=== PATIENT | female | born 1970 ===

== ENCOUNTER 2017-06-17 17:53 | Inpatient (IN) | payer MEDICARE, OTHER ==
[2017-06-17 17:53] VITALS: BMI 28.0
[2017-06-17] MEDS ORDERED: Sodium Chloride 0.9% 1,000 ML IV ONE (18:24)
[2017-06-17] MEDS ORDERED: Sodium Chloride 0.9% 1,000 ML ONE (18:52)
[2017-06-17 18:54] LABS: VENOUS BLOOD GAS BASE EXCESS 1.3 mmol/L (0.0-2.0); VENOUS BLOOD GAS PCO2 36 mmHg (40-60); VENOUS BLOOD GAS PO2 60 mm/Hg (30-55); VENOUS BLOOD PH 7.45 (7.32-7.43)
[2017-06-17 18:54] LABS: BASO % 0.3 % (0.0-2.0); EOS % 0.9 % (0.0-4.0); HEMOGLOBIN 12.2 g/dL (11.0-16.0); LYMPH # 0.5 K/uL (1.0-4.3); LYMPH % 9.3 % (20.0-40.0); MEAN CELL VOLUME 75.7 fL (81.0-99.0); MEAN PLATELET VOLUME 9.7 fL (7.2-11.7); MONO # 0.5 K/uL (0.0-0.8); MONO % 8.9 % (0.0-10.0); NEUT # 4.4 K/uL (1.8-7.0); NEUT % 80.6 % (50.0-75.0); PLATELET COUNT 166 K/uL (130-400); RBC 4.87 Mil/uL (3.80-5.20); RED CELL DISTRIBUTION WIDTH 15.3 % (11.5-14.5); WHITE BLOOD COUNT 5.5 K/uL (4.8-10.8)
[2017-06-17 19:05] LABS: ALB/GLOB RATIO 1.3 (1.0-2.1); ALBUMIN 4.4 g/dL (3.5-5.0); ALT/SGPT 16 U/L (9-52); AST/SGOT 21 U/L (14-36); BLOOD UREA NITROGEN 8 mg/dL (7-17); CALCIUM 9.4 mg/dl (8.6-10.4); GFR AFRICAN-AMERICAN > 60; GFR NON-AFRICAN AMERICAN > 60
[2017-06-17 19:10] LABS: SQUAMOUS EPITHIAL 1 /hpf (0-5); URINE BILIRUBIN NEGATIVE (NEGATIVE); URINE BLOOD 2+ (NEGATIVE); URINE CLARITY Clear (Clear); URINE COLOR Straw (YELLOW); URINE GLUCOSE (UA) NORMAL (Normal); URINE LEUKOCYTE ESTERASE NEG Leu/uL (Negative); URINE NITRATE NEGATIVE (NEGATIVE); URINE PROTEIN NEGATIVE (NEGATIVE); URINE UROBILINOGEN NORMAL mg/dL (0.2-1.0)
--- NOTE | 2017-06-17 19:20 | C.PDOC ---
History Of Present Illness <Kerri Bhatia - Last Filed: 06/17/17 23:03> <Matt Costello - Last Filed: 06/17/17 23:34> 47 yo female w/PMHx of breast CA (2015) in remission, thyroid ds, come in for evaluation of fever, bodyaches, dry cough gradually developed since yesterday. Pt reports, developed mild cold sx 1 week ago with nasal congestion, dry cough. Pt sts, was seen by PMD 1 week ago, received Rx; Zithromax, completed 4 days ago. Pt reports, since yesterday felt worse with fever, bodyaches. Otherwise , pt denies lethargy, severe headache, dizziness, neck pain, drooling, dysphagia, dyspnea, CP, SOB, palpitation, abd. pain, V/D, UTI sx, denies recent travel or known sick contact. Ambulate to ED for evaluation, not in nay apparent distress. (Kerri Bhatia) History Per: Patient, Family Onset/Duration Of Symptoms: Gradual <Kerri Bhatia - Last Filed: 06/17/17 23:03> <Matt Costello - Last Filed: 06/17/17 23:34> Time Seen by Provider: 06/17/17 18:10 Chief Complaint (Nursing): Flu-like Symptoms Past Medical History Reviewed: Historical Data, Nursing Documentation, Vital Signs - Medical History PMH: Anxiety, Depression, Gastritis, Hypothyroidism, Malignancy (breast CA s/p mastectomy, taking Tamoxifen), Seizures (1982), TIA (1988) Denies: Chronic Kidney Disease Other Surgeries: B/L mastectomy Family History: States: Unknown Family Hx - Social History Hx Tobacco Use: No Hx Alcohol Use: No Hx Substance Use: No - Immunization History Hx Tetanus Toxoid Vaccination: No Hx Influenza Vaccination: No Hx Pneumococcal Vaccination: No <Kerri Bhatia - Last Filed: 06/17/17 23:03> Vital Signs: Last Vital Signs Temp 101.3 F H 06/17/17 22:35 Pulse 117 H 06/17/17 22:24 Resp 18 06/17/17 22:24 BP 112/91 H 06/17/17 22:24 Pulse Ox 98 06/17/17 23:09 - [facility] Procedures BILAT EXTEND SIMP MASTEC (12/14/13) BILATERAL BREAST IMPLANT (07/19/14) BONE BIOPSY NEC (01/30/14) BREAST IMPLANT REMOVAL (07/19/14) COLONOSCOPY (03/02/13) ESOPHAGOGASTRODUODENOSCOPY [EGD] W/CLOSED BIOPSY (03/02/13) EXCISE AXILLARY NODE (12/14/13) INCIS W REM OF FORIEGN BODY OR DEV FROM SKIN & SUBCUT TISSUE (12/03/14) INJECT/INFUSE NEC (08/31/13) INSERTION OF BREAST TISSUE CEMENT FITTINGS MAKER (12/14/13) INSERTION OF TOTALLY IMPLANTABLE VASC ACCESS DEVIC (01/11/14) MAMMOPLASTY NEC (12/14/13) OTHER C.A.T. SCAN (01/30/14) PERCUTAN NEEDLE BIOPSY OF BREAST (09/26/13) THORAX SFT TISS XRAY NEC (12/03/14) Review Of Systems Except As Marked, All Systems Reviewed And Found Negative. Constitutional: Positive for: Fever, Chills, Malaise ENT: Positive for: Nose Discharge, Nose Congestion, Throat Pain. Negative for: Ear Pain, Ear Discharge Cardiovascular: Negative for: Chest Pain, Edema, Light Headedness Respiratory: Positive for: Cough. Negative for: Shortness of Breath, Wheezing Gastrointestinal: Positive for: Nausea. Negative for: Vomiting, Abdominal Pain , Diarrhea Musculoskeletal: Negative for: Neck Pain, Back Pain Skin: Negative for: Rash Neurological: Negative for: Altered Mental Status, Headache <Kerri Bhatia - Last Filed: 06/17/17 23:03> Physical Exam - Physical Exam Appears: Well, Non-toxic, No Acute Distress Skin: Normal Color, Warm, Dry, No Rash Head: Normacephalic Eye(s): bilateral: PERRL Ear(s): Bilateral: Normal Nose: No Flaring, Discharge (B/L nasal congestion with scant clear rhinorrhea) Oral Mucosa: Moist, No Drooling Throat: No Erythema, No Drooling Neck: Trachea Midline, Supple Cardiovascular: Rhythm Regular (tachy), No Murmur, No JVD Respiratory: No Decreased Breath Sounds, No Accessory Muscle Use, No Stridor, No Wheezing Gastrointestinal/Abdominal: Soft, No Tenderness, No Distention, No Guarding Back: No CVA Tenderness Extremity: Normal ROM, No Pedal Edema, No Deformity, No Swelling Neurological/Psych: Oriented x3, Normal Speech <Kerri Bhatia - Last Filed: 06/17/17 23:03> ED Course And Treatment - Laboratory Results Result Diagrams: 06/17/17 18:48 06/17/17 18:48 O2 Sat by Pulse Oximetry: 98 Pulse Ox Interpretation: Normal - Radiology CXR: Interpreted by Me, Viewed By Me CXR Interpretation: Yes: No Acute Disease Progress Note: After my evaluation, was notified abput case. Septic work up performed. Lactic was slightly elevated. Hydration with IV fluids order immediately. Influenza A (+), tamiflu initiated. <Kerri Bhatia - Last Filed: 06/17/17 23:03> - Laboratory Results Result Diagrams: 06/17/17 18:48 02 18:48 - Physician Consult Information Physician Contacted: Kofi Song (ICU) Outcome Of Conversation: He evaluated pt in the ED and did not accept pt to ICU. Pt will be downgraded to Tele. <Matt Costello E - Last Filed: 06/17/17 23:34> Critical Care Time - Critical Care Note Total Time (in mins): 30 Documented critical care: time excludes all time spent performing seperately billable procedures. <Kerri Bhatia - Last Filed: 06/17/17 23:03> Disposition - Disposition Disposition Time: 23:03 <Kerri Bhatia - Last Filed: 06/17/17 23:03> <Matt Costello E - Last Filed: 06/17/17 23:34> - Disposition Disposition: HOSPITALIZED Condition: FAIR - Clinical Impression Clinical Impression: Influenza - PA / MANAGER ENGINE / Resident Statement MD/DO has reviewed & agrees with the documentation as recorded. <Matt Costello E - Last Filed: 06/17/17 23:34>
[2017-06-17 19:29] LABS: ANISOCYTOSIS SLIGHT; HYPOCHROMIC SLIGHT; LYMPHOCYTE 4 % (20-40); MONOCYTE 4 % (0-10); NEUTROPHIL 92 % (50-75); PLATELET ESTIMATE NORMAL (NORMAL); TOTAL CELLS COUNTED 100
[2017-06-17 19:30] LABS: POLYCHROMIC SLIGHT
[2017-06-17] MEDS ORDERED: Lactated Ringer's 1,000 ML ONE (21:45)
[2017-06-17 22:08] LABS: VENOUS BLOOD GAS BASE EXCESS -1.1 mmol/L (0.0-2.0); VENOUS BLOOD GAS PCO2 38 mmHg (40-60); VENOUS BLOOD GAS PO2 34 mm/Hg (30-55)
[2017-06-17] MEDS ORDERED: Lactated Ringer's 1,800 ML IV ONE (23:04)
[2017-06-17] MEDS ORDERED: cefTRIAXone IV 1 gm in Dextros 50 ML IVPB ONE (23:36)
[2017-06-17] MEDS ORDERED: guaiFENesin DM 200 mg-20 mg/10 ml UD PO PRN (23:37)
--- NOTE | 2017-06-17 23:43 | CP.PCM.CON ---
History of Present Illness - History of Present Illness History of Present Illness: 47 y/o female with pmx of breast cancer(resolved? as per patient) presents to [facility] with c/o cough/fevers and joint pain. Patient has 2 children also with coughing. Patient c/o sore throat, denies any chest pain, denies any abdominal pain. 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 cancer spread to right hip - GASTROINTESTINAL Hx Gastritis: Yes - GENITOURINARY/GYNECOLOGICAL Hx Reproductive Disorders: Yes Other/Comment: h/o Fibroid Uterus - PSYCHIATRIC Hx Anxiety: Yes Hx Depression: Yes Hx Substance Use: No - SURGICAL HISTORY Hx Surgeries: Yes Hx Breast Biopsy: Yes Hx Section: Yes (x3) Hx Hysterectomy: Yes (2011) Hx Mastectomy: Yes (Bilateral 11/2012 W/ BILATERAL BREAST IMPLANTS) Hx Vascular Access Device: Yes (removal richa cath) Other/Comment: abdominoplasty/LUNG BIOPSY - ANESTHESIA Hx Anesthesia: Yes Hx Anesthesia Reactions: Yes (n/v) Hx Malignant Hyperthermia: No Meds Allergies/Adverse Reactions: Allergies Allergy/AdvReac Type Severity Reaction Status Date / Time levofloxacin [From Levaquin] Allergy Severe ITCHING Verified 02/12/16 15:42 - Medications Medications: Current Medications Guaifenesin/Dextromethorphan (Robitussin Dm) 10 ml PO Q4H PRN PRN Reason: Cough and congestion Ceftriaxone Sodium 1 gm/ (Sodium Chloride) 100 mls @ 100 mls/hr IVPB STAT STA Stop: 06/18/17 00:20 Sodium Chloride (Sodium Chloride 0.9%) 1,000 mls @ 100 mls/hr IV .Q10H ALIVIA Results - Vital Signs Recent Vital Signs: Last Vital Signs Temp 101.3 F H 06/17/17 22:35 Pulse 117 H 06/17/17 22:24 Resp 18 06/17/17 22:24 BP 112/91 H 06/17/17 22:24 Pulse Ox 98 06/17/17 23:09 - Labs Result Diagrams: 06/17/17 18:48 06/17/17 18:48 Labs: Laboratory Results - last 24 hr 06/17/17 06/17/17 06/17/17 18:27 18:48 18:48 WBC 5.5 RBC 4.87 Hgb 12.2 Hct 36.9 MCV 75.7 L D MCH 25.0 L MCHC 33.0 RDW 15.3 H Plt Count 166 MPV 9.7 Neut % (Auto) 80.6 H Lymph % (Auto) 9.3 L [place] % (Auto) 8.9 Eos % (Auto) 0.9 Baso % (Auto) 0.3 Neut # (Auto) 4.4 Lymph # (Auto) 0.5 L [place] # (Auto) 0.5 Eos # (Auto) 0.0 Baso # (Auto) 0.0 Neutrophils % (Manual) 92 H Lymphocytes % (Manual) 4 L Monocytes % (Manual) 4 Platelet Estimate Normal Polychromasia Slight Hypochromasia (manual) Slight Anisocytosis (manual) Slight pO2 VBG pH VBG pCO2 VBG HCO3 VBG Total CO2 VBG O2 Sat (Calc) VBG Base Excess VBG Potassium Glucose Lactate FiO2 Sodium 138 Potassium 4.0 Chloride 99 Carbon Dioxide 24 Anion Gap 19 BUN 8 Creatinine 0.5 L Est GFR ( Amer) > 60 Est GFR (Non-Af Amer) > 60 Random Glucose 112 H Calcium 9.4 Total Bilirubin 0.3 AST 21 ALT 16 Alkaline Phosphatase 97 Total Protein 7.8 Albumin 4.4 Globulin 3.4 Albumin/Globulin Ratio 1.3 Venous Blood Potassium Urine Color Urine Clarity Urine pH Ur Specific [place] Urine Protein Urine Glucose (UA) Urine Ketones Urine Blood Urine Nitrate Urine Bilirubin Urine Urobilinogen Ur Leukocyte Esterase Urine WBC (Auto) Urine RBC (Auto) Ur Squamous Epith Cells Influenza Typ A,B (EIA) Pos for influenza a H 06/17/17 06/17/17 06/17/17 18:50 19:00 22:05 WBC RBC Hgb Hct MCV MCH MCHC RDW Plt Count MPV Neut % (Auto) Lymph % (Auto) [place] % (Auto) Eos % (Auto) Baso % (Auto) Neut # (Auto) Lymph # (Auto) [place] # (Auto) Eos # (Auto) Baso # (Auto) Neutrophils % (Manual) Lymphocytes % (Manual) Monocytes % (Manual) Platelet Estimate Polychromasia Hypochromasia (manual) Anisocytosis (manual) pO2 60 H 34 VBG pH 7.45 H 7.40 VBG pCO2 36 L 38 L VBG HCO3 25.8 23.2 VBG Total CO2 26.1 24.7 VBG O2 Sat (Calc) 94.5 H 65.4 H VBG Base Excess 1.3 -1.1 L VBG Potassium 3.9 3.5 L Glucose 112 H 123 H Lactate 2.6 H 2.7 H FiO2 21.0 Sodium 136.0 140.0 Potassium Chloride 105.0 113.0 H Carbon Dioxide Anion Gap BUN Creatinine Est GFR ( Amer) Est GFR (Non-Af Amer) Random Glucose Calcium Total Bilirubin AST ALT Alkaline Phosphatase Total Protein Albumin Globulin Albumin/Globulin Ratio Venous Blood Potassium 3.9 3.5 L Urine Color Straw Urine Clarity Clear Urine pH 8.0 Ur Specific [place] 1.010 Urine Protein Negative Urine Glucose (UA) Normal Urine Ketones Negative Urine Blood 2+ H Urine Nitrate Negative Urine Bilirubin Negative Urine Urobilinogen Normal Ur Leukocyte Esterase Neg Urine WBC (Auto) < 1 Urine RBC (Auto) 2 Ur Squamous Epith Cells 1 Influenza Typ A,B (EIA) Assessment & Plan - Assessment and Plan (Free Text) Assessment: URTI: flu (+), start tamiflu + ceftriaxone -IV hydration with IV NS -Serial lactic -isolation -dvt ppx lovenox -Please call ICU if patient's clinical status worsens. d/w Dr. Oconnor (ER)
[2017-06-18] MEDS ORDERED: guaiFENesin DM 100 mg-10 mg/5 ml UD ONE (00:22)
[2017-06-18] MEDS: Sodium Chloride 0.9% 1,000 ML IV SCH ×3 (01:05→20:11)
[2017-06-18] MEDS ORDERED: Sodium Chloride 0.9% 1,000 ML ONE (04:05)
[2017-06-18] MEDS ORDERED: Azithromycin 500mg/250ML NS 500 MG/250 ML BAG IVPB STA (07:18)
[2017-06-18] MEDS ORDERED: Azithromycin 500 MG in Sodium Chloride 0.9% 250 ML IVPB ONE (08:00)
--- NOTE | 2017-06-18 08:26 | RAD ---
HISTORY: Cough COMPARISON: Chest x-ray performed 03/08/17 TECHNIQUE: Chest PA and lateral FINDINGS: Examination limited by habitus and hypoinflation. LUNGS: No focal consolidation. 3 mm left upper lobe and 2 mm left mid lung zone probable calcified granulomas. Please note that chest x-ray has limited sensitivity for the detection of pulmonary masses. PLEURA: No significant pleural effusion identified. No definite pneumothorax . CARDIOVASCULAR: Heart size appears within normal limits. OSSEOUS STRUCTURES: Mild degenerative changes of the spine. VISUALIZED UPPER ABDOMEN: Unremarkable. OTHER FINDINGS: Surgical clips project over the chest anterior thorax. IMPRESSION: No focal consolidation identified.
[2017-06-18] MEDS: Albuterol-Ipratrop 3 mg / 0.5 (3 ml) UD INH SCH ×3 (08:30→20:15)
[2017-06-18] MEDS ORDERED: Albuterol-Ipratrop 3 mg / 0.5 (3 ml) UD ONE ×3 (08:31→20:04)
[2017-06-18] MEDS ORDERED: Levothyroxine 25 MCG TAB PO SCH (10:00)
[2017-06-18] MEDS: Enoxaparin 40 mg Syringe SC SCH (10:06)
--- NOTE | 2017-06-18 14:19 | CP.PCM.CON ---
History of Present Illness - History of Present Illness History of Present Illness: INFECTIOUS DISEASE CONSULT; HPI; 47-year-old female with history of breast CA status post bilateral mastectomy taking tamoxifen, hypothyroidism, depression, gastritis was admitted via the emergency room with fever, body aches and a dry cough which developed one day prior to admission. Patient admits to URI symptoms with nasal congestion and dry cough and was treated with by mouth Zithromax and completed the dose but states she felt worse. She denies any recent travel or sick contacts. She has children who are also sick at home. Patient denies any nausea vomiting, headache, dizziness, dysphagia, shortness of breath or palpitations. An influenza rapid antigen test was positive for influenza A and patient was started on by mouth Tamiflu and broad-spectrum antibiotics including Rocephin and Zithromax. Patient serum lactate was also found to be elevated to 2.6 and on repeat 2.7. Infectious disease consultation requested by PMD for sepsis and influenza. PMH: Anxiety, Depression, Gastritis, Hypothyroidism, Malignancy (breast CA s/p mastectomy, taking Tamoxifen), Seizures (1982), TIA (1988) Denies: Chronic Kidney Disease Other Surgeries: B/L mastectomy Family History: States: Unknown Family Hx - Social History Hx Tobacco Use: No Hx Alcohol Use: No Hx Substance Use: No - Immunization History Hx Tetanus Toxoid Vaccination: No Hx Influenza Vaccination: No Hx Pneumococcal Vaccination: No ALLERGY; LEVAQUIN. Review of Systems - Constitutional Constitutional: Chills, Fever - EENT Eyes: absent: Change in Vision Ears: absent: Ear Pain Nose/Mouth/Throat: absent: Hoarsness, Mouth Lesions, Sore Throat - Cardiovascular Cardiovascular: absent: Chest Pain - Respiratory Respiratory: Cough (dry), Chest Congestion - Gastrointestinal Gastrointestinal: absent: Abdominal Pain, Constipation, Diarrhea, Nausea, Vomiting - Genitourinary Genitourinary: absent: Dysuria, Urinary Hesitance - Musculoskeletal Musculoskeletal: Arthralgias, Muscle Cramps, Myalgias - Neurological Neurological: absent: Dizziness, Headaches - Psychiatric Psychiatric: Anxiety, Depression - Hematologic/Lymphatic Hematologic: As Per HPI. absent: Lymphadenopathy Past Patient History - Past Medical History & Family History Past Medical History?: Yes - Past Social History Smoking Status: Never Smoked - CARDIAC Hx Cardiac Disorders: No - PULMONARY Hx Respiratory Disorders: Yes Other/Comment: GRANULOMA ON CXR DONE ON 12/11/13 ON LEFT UPPER LUNG FIELD - NEUROLOGICAL Hx Seizures: Yes (1982) Hx Transient Ischemic Attacks (TIA): Yes (1988) - HEENT Hx HEENT Problems: Yes Other/Comment: THYROID NODULE - RENAL Hx Chronic Kidney Disease: No - ENDOCRINE/METABOLIC Hx Hypothyroidism: Yes - HEMATOLOGICAL/ONCOLOGICAL Hx Blood Disorders: Yes Hx Cancer: Yes (breast ca right) Hx Chemotherapy: Yes (FINISHED NOW ) Hx Metastesis: Yes (right hip) - INTEGUMENTARY Hx Dermatological Problems: No - MUSCULOSKELETAL/RHEUMATOLOGICAL Hx Musculoskeletal Disorders: No Hx Falls: No Other/Comment: right hip pain when it cold . cancer spread to right hip - GASTROINTESTINAL Hx Gastritis: Yes - GENITOURINARY/GYNECOLOGICAL Hx Reproductive Disorders: Yes Other/Comment: h/o Fibroid Uterus - PSYCHIATRIC Hx Anxiety: Yes Hx Depression: Yes Hx Substance Use: No - SURGICAL HISTORY Hx Surgeries: Yes Hx Breast Biopsy: Yes Hx Section: Yes (x3) Hx Hysterectomy: Yes (2011) Hx Mastectomy: Yes (Bilateral 11/2012 W/ BILATERAL BREAST IMPLANTS) Hx Vascular Access Device: Yes (removal richa cath) Other/Comment: abdominoplasty/LUNG BIOPSY - ANESTHESIA Hx Anesthesia: Yes Hx Anesthesia Reactions: Yes (n/v) Hx Malignant Hyperthermia: No Meds Allergies/Adverse Reactions: Allergies Allergy/AdvReac Type Severity Reaction Status Date / Time levofloxacin [From Levaquin] Allergy Severe ITCHING Verified 02/12/16 15:42 - Medications Medications: Current Medications Albuterol/Ipratropium (Duoneb 3 Mg/0.5 Mg (3 Ml) Ud) 3 ml INH RQ6 [facility] Last Admin: 06/18/17 08:30 Dose: 3 ml Enoxaparin Sodium (Lovenox) 40 mg SC DAILY [facility] Last Admin: 06/18/17 10:06 Dose: 40 mg Guaifenesin/Dextromethorphan (Robitussin Dm) 10 ml PO Q4H PRN PRN Reason: Cough and congestion Last Admin: 06/18/17 00:15 Dose: 10 ml Sodium Chloride (Sodium Chloride 0.9%) 1,000 mls @ 100 mls/hr IV .Q10H [facility] Last Admin: 06/18/17 10:06 Dose: 100 mls/hr Ceftriaxone Sodium 1 gm/ (Sodium Chloride) 100 mls @ 200 mls/hr IVPB Q24H [facility] Last Admin: 06/18/17 10:36 Dose: 200 mls/hr Levothyroxine Sodium (Synthroid) 50 mcg PO DAILY [facility] Last Admin: 06/18/17 09:14 Dose: 50 mcg Oseltamivir Phosphate (Tamiflu Cap) 75 mg PO BID [facility] Stop: 06/23/17 07:19 Last Admin: 06/18/17 10:06 Dose: 75 mg Physical Exam - Constitutional Appears: No Acute Distress - Head Exam Head Exam: NORMAL INSPECTION - Eye Exam Eye Exam: EOMI, PERRL - ENT Exam ENT Exam: Mucous Membranes Dry, Normal Oropharynx - Neck Exam Neck exam: Positive for: Normal Inspection. Negative for: Meningismus - Respiratory Exam Respiratory Exam: Clear to Auscultation Bilateral, NORMAL BREATHING PATTERN - Cardiovascular Exam Cardiovascular Exam: REGULAR RHYTHM, +S1, +S2 - GI/Abdominal Exam GI & Abdominal Exam: Normal Bowel Sounds, Soft. absent: Tenderness - Extremities Exam Extremities exam: Positive for: pedal pulses present. Negative for: calf tenderness, pedal edema - Neurological Exam Neurological exam: Alert, CN II-XII Intact, Oriented x3 - Psychiatric Exam Psychiatric exam: Normal Mood - Skin Skin Exam: Normal Color, Warm Results - Vital Signs Recent Vital Signs: Last Vital Signs Temp 99.4 F 06/18/17 12:07 Pulse 101 H 06/18/17 12:07 Resp 22 06/18/17 12:07 BP 98/65 L 06/18/17 12:07 Pulse Ox 97 06/18/17 12:07 - Labs Result Diagrams: 06/17/17 18:48 06/17/17 18:48 Labs: Laboratory Results - last 24 hr 06/17/17 06/17/17 06/17/17 18:27 18:48 18:48 WBC 5.5 RBC 4.87 Hgb 12.2 Hct 36.9 MCV 75.7 L D MCH 25.0 L MCHC 33.0 RDW 15.3 H Plt Count 166 MPV 9.7 Neut % (Auto) 80.6 H Lymph % (Auto) 9.3 L [place] % (Auto) 8.9 Eos % (Auto) 0.9 Baso % (Auto) 0.3 Neut # (Auto) 4.4 Lymph # (Auto) 0.5 L [place] # (Auto) 0.5 Eos # (Auto) 0.0 Baso # (Auto) 0.0 Neutrophils % (Manual) 92 H Lymphocytes % (Manual) 4 L Monocytes % (Manual) 4 Platelet Estimate Normal Polychromasia Slight Hypochromasia (manual) Slight Anisocytosis (manual) Slight pO2 VBG pH VBG pCO2 VBG HCO3 VBG Total CO2 VBG O2 Sat (Calc) VBG Base Excess VBG Potassium Glucose Lactate FiO2 Sodium 138 Potassium 4.0 Chloride 99 Carbon Dioxide 24 Anion Gap 19 BUN 8 Creatinine 0.5 L Est GFR ( Amer) > 60 Est GFR (Non-Af Amer) > 60 Random Glucose 112 H Lactic Acid Calcium 9.4 Total Bilirubin 0.3 AST 21 ALT 16 Alkaline Phosphatase 97 Total Protein 7.8 Albumin 4.4 Globulin 3.4 Albumin/Globulin Ratio 1.3 Venous Blood Potassium Urine Color Urine Clarity Urine pH Ur Specific [place] Urine Protein Urine Glucose (UA) Urine Ketones Urine Blood Urine Nitrate Urine Bilirubin Urine Urobilinogen Ur Leukocyte Esterase Urine WBC (Auto) Urine RBC (Auto) Ur Squamous Epith Cells Influenza Typ A,B (EIA) Pos for influenza a H 06/17/17 06/17/17 06/17/17 18:50 19:00 22:05 WBC RBC Hgb Hct MCV MCH MCHC RDW Plt Count MPV Neut % (Auto) Lymph % (Auto) [place] % (Auto) Eos % (Auto) Baso % (Auto) Neut # (Auto) Lymph # (Auto) [place] # (Auto) Eos # (Auto) Baso # (Auto) Neutrophils % (Manual) Lymphocytes % (Manual) Monocytes % (Manual) Platelet Estimate Polychromasia Hypochromasia (manual) Anisocytosis (manual) pO2 60 H 34 VBG pH 7.45 H 7.40 VBG pCO2 36 L 38 L VBG HCO3 25.8 23.2 VBG Total CO2 26.1 24.7 VBG O2 Sat (Calc) 94.5 H 65.4 H VBG Base Excess 1.3 -1.1 L VBG Potassium 3.9 3.5 L Glucose 112 H 123 H Lactate 2.6 H 2.7 H FiO2 21.0 Sodium 136.0 140.0 Potassium Chloride 105.0 113.0 H Carbon Dioxide Anion Gap BUN Creatinine Est GFR ( Amer) Est GFR (Non-Af Amer) Random Glucose Lactic Acid Calcium Total Bilirubin AST ALT Alkaline Phosphatase Total Protein Albumin Globulin Albumin/Globulin Ratio Venous Blood Potassium 3.9 3.5 L Urine Color Straw Urine Clarity Clear Urine pH 8.0 Ur Specific [place] 1.010 Urine Protein Negative Urine Glucose (UA) Normal Urine Ketones Negative Urine Blood 2+ H Urine Nitrate Negative Urine Bilirubin Negative Urine Urobilinogen Normal Ur Leukocyte Esterase Neg Urine WBC (Auto) < 1 Urine RBC (Auto) 2 Ur Squamous Epith Cells 1 Influenza Typ A,B (EIA) 06/18/17 04:18 WBC RBC Hgb Hct MCV MCH MCHC RDW Plt Count MPV Neut % (Auto) Lymph % (Auto) [place] % (Auto) Eos % (Auto) Baso % (Auto) Neut # (Auto) Lymph # (Auto) [place] # (Auto) Eos # (Auto) Baso # (Auto) Neutrophils % (Manual) Lymphocytes % (Manual) Monocytes % (Manual) Platelet Estimate Polychromasia Hypochromasia (manual) Anisocytosis (manual) pO2 VBG pH VBG pCO2 VBG HCO3 VBG Total CO2 VBG O2 Sat (Calc) VBG Base Excess VBG Potassium Glucose Lactate FiO2 Sodium Potassium Chloride Carbon Dioxide Anion Gap BUN Creatinine Est GFR ( Amer) Est GFR (Non-Af Amer) Random Glucose Lactic Acid 1.2 Calcium Total Bilirubin AST ALT Alkaline Phosphatase Total Protein Albumin Globulin Albumin/Globulin Ratio Venous Blood Potassium Urine Color Urine Clarity Urine pH Ur Specific [place] Urine Protein Urine Glucose (UA) Urine Ketones Urine Blood Urine Nitrate Urine Bilirubin Urine Urobilinogen Ur Leukocyte Esterase Urine WBC (Auto) Urine RBC (Auto) Ur Squamous Epith Cells Influenza Typ A,B (EIA) - Imaging and Cardiology Chest x-ray Status: Report reviewed by me (no focal consolidation. 3 mm old calcified granuloma left upper lung.) Assessment & Plan (1) Cough Assessment and Plan: MONTOYA CULTURE. CONTINUE PO tAMIFLU 75 BY MOUTH TWICE A DAY FOR 5 DAYS 06/17/17 CONTINUE ROCEPHIN 1 G EVERY 24 HOURLY 06/17/17 DC IV zITHROMAX .06/18/17 ANTITUSSIVE PER PULMONARY. AIRBORNE ISOLATION FOR INFLUENZA a Status: Acute (2) Influenza Assessment and Plan: PER ABOVE. cONTINUE ANTIVIRAL THERAPY ORDERED Status: Acute (3) Anxiety Status: Acute
--- NOTE | 2017-06-18 14:41 | CP.PCM.CON ---
History of Present Illness - History of Present Illness History of Present Illness: Reason for consultation: cough 47-year-old female with history of breast cancer diagnosed in 2016, hypothyroidsm presented to emergency room complaining off dry cough, fever, generalized aches and pains for the past one week. Patient was treated with Zithromax but symptoms progressively got worse. In the emergency room patient found to have elevated lactate level. Patient was started on antibiotics and IV fluids. Patient alert oriented x3 and in no respiratory distress the Review of Systems - Review of Systems All systems: reviewed and no additional remarkable complaints except ( complaining of cough) Past Patient History - Past Medical History & Family History Past Medical History?: Yes - Past Social History Smoking Status: Never Smoked - CARDIAC Hx Cardiac Disorders: No - PULMONARY Hx Respiratory Disorders: Yes Other/Comment: GRANULOMA ON CXR DONE ON 12/11/13 ON LEFT UPPER LUNG FIELD - NEUROLOGICAL Hx Seizures: Yes (1982) Hx Transient Ischemic Attacks (TIA): Yes (1988) - HEENT Hx HEENT Problems: Yes Other/Comment: THYROID NODULE - RENAL Hx Chronic Kidney Disease: No - ENDOCRINE/METABOLIC Hx Hypothyroidism: Yes - HEMATOLOGICAL/ONCOLOGICAL Hx Blood Disorders: Yes Hx Cancer: Yes (breast ca right) Hx Chemotherapy: Yes (FINISHED NOW ) Hx Metastesis: Yes (right hip) - INTEGUMENTARY Hx Dermatological Problems: No - MUSCULOSKELETAL/RHEUMATOLOGICAL Hx Musculoskeletal Disorders: No Hx Falls: No Other/Comment: right hip pain when it cold . cancer spread to right hip - GASTROINTESTINAL Hx Gastritis: Yes - GENITOURINARY/GYNECOLOGICAL Hx Reproductive Disorders: Yes Other/Comment: h/o Fibroid Uterus - PSYCHIATRIC Hx Anxiety: Yes Hx Depression: Yes Hx Substance Use: No - SURGICAL HISTORY Hx Surgeries: Yes Hx Breast Biopsy: Yes Hx Section: Yes (x3) Hx Hysterectomy: Yes (2011) Hx Mastectomy: Yes (Bilateral 11/2012 W/ BILATERAL BREAST IMPLANTS) Hx Vascular Access Device: Yes (removal richa cath) Other/Comment: abdominoplasty/LUNG BIOPSY - ANESTHESIA Hx Anesthesia: Yes Hx Anesthesia Reactions: Yes (n/v) Hx Malignant Hyperthermia: No Meds Allergies/Adverse Reactions: Allergies Allergy/AdvReac Type Severity Reaction Status Date / Time levofloxacin [From Levaquin] Allergy Severe ITCHING Verified 02/12/16 15:42 - Medications Medications: Current Medications Albuterol/Ipratropium (Duoneb 3 Mg/0.5 Mg (3 Ml) Ud) 3 ml INH RQ6 [facility] Last Admin: 06/18/17 08:30 Dose: 3 ml Enoxaparin Sodium (Lovenox) 40 mg SC DAILY [facility] Last Admin: 06/18/17 10:06 Dose: 40 mg Guaifenesin/Dextromethorphan (Robitussin Dm) 10 ml PO Q4H PRN PRN Reason: Cough and congestion Last Admin: 06/18/17 00:15 Dose: 10 ml Sodium Chloride (Sodium Chloride 0.9%) 1,000 mls @ 100 mls/hr IV .Q10H [facility] Last Admin: 06/18/17 10:06 Dose: 100 mls/hr Ceftriaxone Sodium 1 gm/ (Sodium Chloride) 100 mls @ 200 mls/hr IVPB Q24H [facility] Last Admin: 06/18/17 10:36 Dose: 200 mls/hr Levothyroxine Sodium (Synthroid) 50 mcg PO DAILY [facility] Last Admin: 06/18/17 09:14 Dose: 50 mcg Oseltamivir Phosphate (Tamiflu Cap) 75 mg PO BID [facility] Stop: 06/23/17 07:19 Last Admin: 06/18/17 10:06 Dose: 75 mg Physical Exam - Head Exam Head Exam: ATRAUMATIC, NORMOCEPHALIC - ENT Exam ENT Exam: Mucous Membranes Dry - Neck Exam Neck exam: Positive for: Normal Inspection - Respiratory Exam Respiratory Exam: Clear to Auscultation Bilateral - Cardiovascular Exam Cardiovascular Exam: REGULAR RHYTHM - GI/Abdominal Exam GI & Abdominal Exam: Normal Bowel Sounds, Soft - Extremities Exam Extremities exam: Positive for: normal inspection - Neurological Exam Neurological exam: Alert, Oriented x3 Results - Vital Signs Recent Vital Signs: Last Vital Signs Temp 99.4 F 06/18/17 12:07 Pulse 101 H 06/18/17 12:07 Resp 22 06/18/17 12:07 BP 98/65 L 06/18/17 12:07 Pulse Ox 97 06/18/17 12:07 - Labs Result Diagrams: 06/17/17 18:48 06/17/17 18:48 Labs: Laboratory Results - last 24 hr 06/17/17 06/17/17 06/17/17 18:27 18:48 18:48 WBC 5.5 RBC 4.87 Hgb 12.2 Hct 36.9 MCV 75.7 L D MCH 25.0 L MCHC 33.0 RDW 15.3 H Plt Count 166 MPV 9.7 Neut % (Auto) 80.6 H Lymph % (Auto) 9.3 L [place] % (Auto) 8.9 Eos % (Auto) 0.9 Baso % (Auto) 0.3 Neut # (Auto) 4.4 Lymph # (Auto) 0.5 L [place] # (Auto) 0.5 Eos # (Auto) 0.0 Baso # (Auto) 0.0 Neutrophils % (Manual) 92 H Lymphocytes % (Manual) 4 L Monocytes % (Manual) 4 Platelet Estimate Normal Polychromasia Slight Hypochromasia (manual) Slight Anisocytosis (manual) Slight pO2 VBG pH VBG pCO2 VBG HCO3 VBG Total CO2 VBG O2 Sat (Calc) VBG Base Excess VBG Potassium Glucose Lactate FiO2 Sodium 138 Potassium 4.0 Chloride 99 Carbon Dioxide 24 Anion Gap 19 BUN 8 Creatinine 0.5 L Est GFR ( Amer) > 60 Est GFR (Non-Af Amer) > 60 Random Glucose 112 H Lactic Acid Calcium 9.4 Total Bilirubin 0.3 AST 21 ALT 16 Alkaline Phosphatase 97 Total Protein 7.8 Albumin 4.4 Globulin 3.4 Albumin/Globulin Ratio 1.3 Venous Blood Potassium Urine Color Urine Clarity Urine pH Ur Specific [place] Urine Protein Urine Glucose (UA) Urine Ketones Urine Blood Urine Nitrate Urine Bilirubin Urine Urobilinogen Ur Leukocyte Esterase Urine WBC (Auto) Urine RBC (Auto) Ur Squamous Epith Cells Influenza Typ A,B (EIA) Pos for influenza a H 06/17/17 06/17/17 06/17/17 18:50 19:00 22:05 WBC RBC Hgb Hct MCV MCH MCHC RDW Plt Count MPV Neut % (Auto) Lymph % (Auto) [place]kinson % (Auto) Eos % (Auto) Baso % (Auto) Neut # (Auto) Lymph # (Auto) [place] # (Auto) Eos # (Auto) Baso # (Auto) Neutrophils % (Manual) Lymphocytes % (Manual) Monocytes % (Manual) Platelet Estimate Polychromasia Hypochromasia (manual) Anisocytosis (manual) pO2 60 H 34 VBG pH 7.45 H 7.40 VBG pCO2 36 L 38 L VBG HCO3 25.8 23.2 VBG Total CO2 26.1 24.7 VBG O2 Sat (Calc) 94.5 H 65.4 H VBG Base Excess 1.3 -1.1 L VBG Potassium 3.9 3.5 L Glucose 112 H 123 H Lactate 2.6 H 2.7 H FiO2 21.0 Sodium 136.0 140.0 Potassium Chloride 105.0 113.0 H Carbon Dioxide Anion Gap BUN Creatinine Est GFR ( Amer) Est GFR (Non-Af Amer) Random Glucose Lactic Acid Calcium Total Bilirubin AST ALT Alkaline Phosphatase Total Protein Albumin Globulin Albumin/Globulin Ratio Venous Blood Potassium 3.9 3.5 L Urine Color Straw Urine Clarity Clear Urine pH 8.0 Ur Specific [place] 1.010 Urine Protein Negative Urine Glucose (UA) Normal Urine Ketones Negative Urine Blood 2+ H Urine Nitrate Negative Urine Bilirubin Negative Urine Urobilinogen Normal Ur Leukocyte Esterase Neg Urine WBC (Auto) < 1 Urine RBC (Auto) 2 Ur Squamous Epith Cells 1 Influenza Typ A,B (EIA) 06/18/17 04:18 WBC RBC Hgb Hct MCV MCH MCHC RDW Plt Count MPV Neut % (Auto) Lymph % (Auto) [place]kinson % (Auto) Eos % (Auto) Baso % (Auto) Neut # (Auto) Lymph # (Auto) [place]kinson # (Auto) Eos # (Auto) Baso # (Auto) Neutrophils % (Manual) Lymphocytes % (Manual) Monocytes % (Manual) Platelet Estimate Polychromasia Hypochromasia (manual) Anisocytosis (manual) pO2 VBG pH VBG pCO2 VBG HCO3 VBG Total CO2 VBG O2 Sat (Calc) VBG Base Excess VBG Potassium Glucose Lactate FiO2 Sodium Potassium Chloride Carbon Dioxide Anion Gap BUN Creatinine Est GFR ( Amer) Est GFR (Non-Af Amer) Random Glucose Lactic Acid 1.2 Calcium Total Bilirubin AST ALT Alkaline Phosphatase Total Protein Albumin Globulin Albumin/Globulin Ratio Venous Blood Potassium Urine Color Urine Clarity Urine pH Ur Specific [place] Urine Protein Urine Glucose (UA) Urine Ketones Urine Blood Urine Nitrate Urine Bilirubin Urine Urobilinogen Ur Leukocyte Esterase Urine WBC (Auto) Urine RBC (Auto) Ur Squamous Epith Cells Influenza Typ A,B (EIA) Assessment & Plan (1) Cough Assessment and Plan: secondary to upper respiratory tract Continue antibiotics IV fluids Followup lactate level Followup chest x-ray Status: Acute (2) Influenza Status: Acute
--- NOTE | 2017-06-18 18:56 | CP.PCM.HP ---
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 cancer spread to right hip - GASTROINTESTINAL Hx Gastritis: Yes - GENITOURINARY/GYNECOLOGICAL Hx Reproductive Disorders: Yes Other/Comment: h/o Fibroid Uterus - PSYCHIATRIC Hx Anxiety: Yes Hx Depression: Yes Hx Substance Use: No - SURGICAL HISTORY Hx Surgeries: Yes Hx Breast Biopsy: Yes Hx Section: Yes (x3) Hx Hysterectomy: Yes (2012) Hx Mastectomy: Yes (Bilateral 11/2012 W/ BILATERAL BREAST IMPLANTS) Hx Vascular Access Device: Yes (removal richa cath) Other/Comment: abdominoplasty/LUNG BIOPSY - ANESTHESIA Hx Anesthesia: Yes Hx Anesthesia Reactions: Yes (n/v) Hx Malignant Hyperthermia: No Meds Allergies/Adverse Reactions: Allergies Allergy/AdvReac Type Severity Reaction Status Date / Time levofloxacin [From Levaquin] Allergy Severe ITCHING Verified 02/12/16 15:42 Physical Exam - Constitutional Appears: Well - Head Exam Head Exam: ATRAUMATIC, NORMAL INSPECTION, NORMOCEPHALIC - Eye Exam Eye Exam: EOMI, Normal appearance, PERRL Pupil Exam: NORMAL ACCOMODATION, PERRL - ENT Exam ENT Exam: Mucous Membranes Moist, Normal Exam - Neck Exam Neck exam: Positive for: Normal Inspection - Respiratory Exam Respiratory Exam: Decreased Breath Sounds - Cardiovascular Exam Cardiovascular Exam: REGULAR RHYTHM, +S1, +S2 - GI/Abdominal Exam GI & Abdominal Exam: Diminished Bowel Sounds, Soft - Rectal Exam Rectal Exam: Deferred Results - Vital Signs Recent Vital Signs: Last Vital Signs Temp 99.1 F 02/23/18 14:37 Pulse 107 H 06/18/17 17:31 Resp 18 06/18/17 17:31 BP 114/66 06/18/17 17:31 Pulse Ox 96 06/18/17 17:31 - Labs Result Diagrams: 06/17/17 18:48 06/17/17 18:48 Labs: Laboratory Results - last 24 hr 06/17/17 06/17/17 06/17/17 18:48 18:48 19:00 WBC 5.5 RBC 4.87 Hgb 12.2 Hct 36.9 MCV 75.7 L D MCH 25.0 L MCHC 33.0 RDW 15.3 H Plt Count 166 MPV 9.7 Neut % (Auto) 80.6 H Lymph % (Auto) 9.3 L [place] % (Auto) 8.9 Eos % (Auto) 0.9 Baso % (Auto) 0.3 Neut # (Auto) 4.4 Lymph # (Auto) 0.5 L [place] # (Auto) 0.5 Eos # (Auto) 0.0 Baso # (Auto) 0.0 Neutrophils % (Manual) 92 H Lymphocytes % (Manual) 4 L Monocytes % (Manual) 4 Platelet Estimate Normal Polychromasia Slight Hypochromasia (manual) Slight Anisocytosis (manual) Slight pO2 VBG pH VBG pCO2 VBG HCO3 VBG Total CO2 VBG O2 Sat (Calc) VBG Base Excess VBG Potassium Glucose Lactate Sodium 138 Potassium 4.0 Chloride 99 Carbon Dioxide 24 Anion Gap 19 BUN 8 Creatinine 0.5 L Est GFR ( Amer) > 60 Est GFR (Non-Af Amer) > 60 Random Glucose 112 H Lactic Acid Calcium 9.4 Total Bilirubin 0.3 AST 21 ALT 16 Alkaline Phosphatase 97 Total Protein 7.8 Albumin 4.4 Globulin 3.4 Albumin/Globulin Ratio 1.3 Venous Blood Potassium Urine Color Straw Urine Clarity Clear Urine pH 8.0 Ur Specific [place] 1.010 Urine Protein Negative Urine Glucose (UA) Normal Urine Ketones Negative Urine Blood 2+ H Urine Nitrate Negative Urine Bilirubin Negative Urine Urobilinogen Normal Ur Leukocyte Esterase Neg Urine WBC (Auto) < 1 Urine RBC (Auto) 2 Ur Squamous Epith Cells 1 06/17/17 06/18/17 22:05 04:18 WBC RBC Hgb Hct MCV MCH MCHC RDW Plt Count MPV Neut % (Auto) Lymph % (Auto) [place] % (Auto) Eos % (Auto) Baso % (Auto) Neut # (Auto) Lymph # (Auto) [place] # (Auto) Eos # (Auto) Baso # (Auto) Neutrophils % (Manual) Lymphocytes % (Manual) Monocytes % (Manual) Platelet Estimate Polychromasia Hypochromasia (manual) Anisocytosis (manual) pO2 34 VBG pH 7.40 VBG pCO2 38 L VBG HCO3 23.2 VBG Total CO2 24.7 VBG O2 Sat (Calc) 65.4 H VBG Base Excess -1.1 L VBG Potassium 3.5 L Glucose 123 H Lactate 2.7 H Sodium 140.0 Potassium Chloride 113.0 H Carbon Dioxide Anion Gap BUN Creatinine Est GFR ( Amer) Est GFR (Non-Af Amer) Random Glucose Lactic Acid 1.2 Calcium Total Bilirubin AST ALT Alkaline Phosphatase Total Protein Albumin Globulin Albumin/Globulin Ratio Venous Blood Potassium 3.5 L Urine Color Urine Clarity Urine pH Ur Specific [place] Urine Protein Urine Glucose (UA) Urine Ketones Urine Blood Urine Nitrate Urine Bilirubin Urine Urobilinogen Ur Leukocyte Esterase Urine WBC (Auto) Urine RBC (Auto) Ur Squamous Epith Cells
[2017-06-19] MEDS: Albuterol-Ipratrop 3 mg / 0.5 (3 ml) UD INH SCH ×3 (02:52→13:12)
[2017-06-19] MEDS ORDERED: Levothyroxine 50 MCG TAB PO SCH (06:30)
[2017-06-19 09:02] VITALS: O2SAT 95
[2017-06-19] MEDS: Enoxaparin 40 mg Syringe SC SCH (10:21)
--- NOTE | 2017-06-19 13:49 | CP.PCM.PN ---
Subjective - Date & Time of Evaluation Date of Evaluation: 06/19/17 Time of Evaluation: 10:35 - Subjective Subjective: the patient seen and examined Sitting comfortably in no distress Afebrile No chest pain Wants to go home Objective - Vital Signs/Intake and Output Vital Signs (last 24 hours): Temp Pulse Resp BP Pulse Ox 98.5 F 91 H 18 101/66 95 06/19/17 09:01 06/19/17 09:01 06/19/17 09:01 06/19/17 09:01 06/19/17 09:01 Intake and Output: 06/19/17 06/19/17 06:59 18:59 Intake Total 700 Balance 700 - Medications Medications: Current Medications Albuterol/Ipratropium (Duoneb 3 Mg/0.5 Mg (3 Ml) Ud) 3 ml INH RQ6 [facility] Last Admin: 06/19/17 13:12 Dose: 3 ml Enoxaparin Sodium (Lovenox) 40 mg SC DAILY [facility] Last Admin: 06/19/17 10:21 Dose: 40 mg Guaifenesin/Dextromethorphan (Robitussin Dm) 10 ml PO Q4H PRN PRN Reason: Cough and congestion Last Admin: 06/18/17 00:15 Dose: 10 ml Sodium Chloride (Sodium Chloride 0.9%) 1,000 mls @ 100 mls/hr IV .Q10H [facility] Last Admin: 06/18/17 20:11 Dose: 100 mls/hr Ceftriaxone Sodium 1 gm/ (Sodium Chloride) 100 mls @ 200 mls/hr IVPB Q24H [facility] Last Admin: 06/19/17 10:22 Dose: 200 mls/hr Levothyroxine Sodium (Synthroid) 50 mcg PO DAILY@0630 [facility] Last Admin: 06/19/17 06:06 Dose: 50 mcg Oseltamivir Phosphate (Tamiflu Cap) 75 mg PO BID [facility] Stop: 06/23/17 07:19 Last Admin: 06/19/17 10:21 Dose: 75 mg - Labs Labs: 06/17/17 18:48 06/17/17 18:48 - Head Exam Head Exam: ATRAUMATIC, NORMOCEPHALIC - Eye Exam Eye Exam: Normal appearance - ENT Exam ENT Exam: Mucous Membranes Moist - Respiratory Exam Respiratory Exam: Clear to Ausculation Bilateral - Cardiovascular Exam Cardiovascular Exam: REGULAR RHYTHM - GI/Abdominal Exam GI & Abdominal Exam: Soft, Normal Bowel Sounds Assessment and Plan (1) Cough Assessment & Plan: ontinue present treatment continue antibiotics, nebulizer treatment Status: Acute (2) Influenza Status: Acute
[2017-06-19 16:42] VITALS: BP 108/69; PULSE 81; RESP 20; TEMP 98.6
--- NOTE | 2017-06-19 16:43 | CP.PCM.PN ---
Objective - Vital Signs/Intake and Output Vital Signs (last 24 hours): Temp Pulse Resp BP Pulse Ox 98.5 F 91 H 18 101/66 95 06/19/17 09:01 06/19/17 09:01 06/19/17 09:01 06/19/17 09:01 06/19/17 09:01 Intake and Output: 06/19/17 06/19/17 06:59 18:59 Intake Total 700 Balance 700 - Medications Medications: Current Medications Albuterol/Ipratropium (Duoneb 3 Mg/0.5 Mg (3 Ml) Ud) [address] [facility] Last Admin: 06/19/17 13:12 Dose: 3 ml Enoxaparin Sodium (Lovenox) [address] [facility] Last Admin: 06/19/17 10:21 Dose: 40 mg Guaifenesin/Dextromethorphan (Robitussin Dm) 10 ml PO Q4H PRN PRN Reason: Cough and congestion Last Admin: 06/18/17 00:15 Dose: 10 ml Sodium Chloride (Sodium Chloride 0.9%) 1,000 mls @ 100 mls/hr IV .Q10H [facility] Last Admin: 06/18/17 20:11 Dose: 100 mls/hr Ceftriaxone Sodium 1 gm/ (Sodium Chloride) 100 mls @ 200 mls/hr IVPB Q24H [facility] Last Admin: 06/19/17 10:22 Dose: 200 mls/hr Levothyroxine Sodium (Synthroid) 50 mcg PO DAILY@0630 [facility] Last Admin: 06/19/17 06:06 Dose: 50 mcg Oseltamivir Phosphate (Tamiflu Cap) [address] [facility] Stop: 06/23/17 07:19 Last Admin: 06/19/17 10:21 Dose: 75 mg - Labs Labs: 06/17/17 18:48 06/17/17 18:48 Assessment and Plan - Assessment and Plan (Free Text) Assessment: Patient admitted with influenza and sepsis, doing well. Seen and examined. Denies sob or chest pains
--- NOTE | 2017-06-19 16:52 | CP.PCM.PN ---
Subjective - Date & Time of Evaluation Date of Evaluation: 06/19/17 Time of Evaluation: 12:00 - Subjective Subjective: clinically same Objective - Vital Signs/Intake and Output Vital Signs (last 24 hours): Temp Pulse Resp BP Pulse Ox 98.6 F 81 20 108/69 95 06/19/17 16:41 06/19/17 16:41 06/19/17 16:41 06/19/17 16:41 06/19/17 16:41 Intake and Output: 06/19/17 06/19/17 06:59 18:59 Intake Total 700 Balance 700 - Medications Medications: Current Medications Albuterol/Ipratropium (Duoneb 3 Mg/0.5 Mg (3 Ml) Ud) 3 ml INH RQ6 [facility] Last Admin: 06/19/17 13:12 Dose: 3 ml Enoxaparin Sodium (Lovenox) 40 mg SC DAILY [facility] Last Admin: 06/19/17 10:21 Dose: 40 mg Guaifenesin/Dextromethorphan (Robitussin Dm) 10 ml PO Q4H PRN PRN Reason: Cough and congestion Last Admin: 06/18/17 00:15 Dose: 10 ml Sodium Chloride (Sodium Chloride 0.9%) 1,000 mls @ 100 mls/hr IV .Q10H [facility] Last Admin: 06/18/17 20:11 Dose: 100 mls/hr Ceftriaxone Sodium 1 gm/ (Sodium Chloride) 100 mls @ 200 mls/hr IVPB Q24H [facility] Last Admin: 06/19/17 10:22 Dose: 200 mls/hr Levothyroxine Sodium (Synthroid) 50 mcg PO DAILY@0630 [facility] Last Admin: 06/19/17 06:06 Dose: 50 mcg Oseltamivir Phosphate (Tamiflu Cap) 75 mg PO BID [facility] Stop: 06/23/17 07:19 Last Admin: 06/19/17 10:21 Dose: 75 mg - Labs Labs: 06/17/17 18:48 06/17/17 18:48 - Constitutional Appears: Well - Head Exam Head Exam: ATRAUMATIC, NORMAL INSPECTION, NORMOCEPHALIC - Eye Exam Eye Exam: EOMI, Normal appearance, PERRL Pupil Exam: NORMAL ACCOMODATION, PERRL - ENT Exam ENT Exam: Mucous Membranes Moist, Normal Exam - Neck Exam Neck Exam: Full ROM, Normal Inspection. absent: Lymphadenopathy - Respiratory Exam Respiratory Exam: Decreased Breath Sounds - Cardiovascular Exam Cardiovascular Exam: REGULAR RHYTHM, +S1, +S2 - GI/Abdominal Exam GI & Abdominal Exam: Soft, Diminished Bowel Sounds - Rectal Exam Rectal Exam: Deferred
== END 2017-06-19 16:30 | disposition home or self-care (01) | DRG 195 ==
LOC: C.ER 17:53 → C.9E 23:08 → C.5S 06-18 23:01
PROVIDERS: ADMIT Internal Medicine Nephrology; ATTEND Internal Medicine Nephrology
DX: J10.1 Influenza due to other identified influenza virus with other respiratory manifestations (principal); F41.9 Anxiety disorder, unspecified; Z85.3 Personal history of malignant neoplasm of breast; Z86.73 Personal history of transient ischemic attack (TIA), and cerebral infarction without residual deficits; Z90.13 Acquired absence of bilateral breasts and nipples; Z90.710 Acquired absence of both cervix and uterus; Z98.82 Breast implant status

== ENCOUNTER 2018-04-01 22:47 | Inpatient (IN) | payer MEDICAID, MEDICARE ==
[2018-04-01 22:48] VITALS: BMI 28.0
--- NOTE | 2018-04-01 23:04 | C.PDOC ---
History Of Present Illness Patient with a Hx of bilateral breast ca with mastectomy and bone mets, while sitting in a chair at home felt some numbness and sharp pain over her left arm, she moved from the chair to the bed and as per had a syncopal episode lasting 1-2 seconds. Afterwards patient complained of left sided numbness and weakness, she has a Hx of previous stroke with the only deficit being a small right facial droop. Patient is currently very anxious. Denies fever, chills, chest pain, or SOB. Time Seen by Provider: 04/01/18 23:02 Chief Complaint (Nursing): Weakness/Neurological Deficit History Per: Patient, Family History/Exam Limitations: no limitations Onset/Duration Of Symptoms: Hrs Current Symptoms Are (Timing): Still Present Number Of Syncopal Episodes: 1 Activity At Onset Of Symptoms: Sitting Associated Symptoms Preceding Syncopal Episode: Other (Left arm numbness/pain) Seizure Or Post-ictal Symptoms: None Fall Associated With With Symptoms: No Severity: Moderate Pain Scale Rating Of: 4 Recent travel outside of the [place]: No Additional History Per: Family - Symptoms Of CVA Recent Aspirin Use: No Current Coumadin Use?: No Recent Head Trauma: No Past Medical History Reviewed: Historical Data, Nursing Documentation, Vital Signs - Medical History PMH: Anxiety, Depression, Gastritis, Hypothyroidism, Malignancy (breast CA s/p mastectomy, taking Tamoxifen), Seizures (1982), TIA (1988) Denies: Chronic Kidney Disease - [facility] Procedures BILAT EXTEND SIMP MASTEC (12/14/13) BILATERAL BREAST IMPLANT (07/19/14) BONE BIOPSY NEC (01/30/14) BREAST IMPLANT REMOVAL (07/19/14) COLONOSCOPY (03/02/13) ESOPHAGOGASTRODUODENOSCOPY [EGD] W/CLOSED BIOPSY (03/02/13) EXCISE AXILLARY NODE (12/14/13) INCIS W REM OF FORIEGN BODY OR DEV FROM SKIN & SUBCUT TISSUE (12/03/14) INJECT/INFUSE NEC (08/31/13) INSERTION OF BREAST TISSUE SLEEPING CAR PORTER (12/14/13) INSERTION OF TOTALLY IMPLANTABLE VASC ACCESS DEVIC (01/11/14) MAMMOPLASTY NEC (12/14/13) OTHER C.A.T. SCAN (01/30/14) PERCUTAN NEEDLE BIOPSY OF BREAST (06/03/14) THORAX SFT TISS XRAY NEC (12/03/14) Family History: States: No Known Family Hx - Social History Hx Tobacco Use: No Hx Alcohol Use: No Hx Substance Use: No - Immunization History Hx Tetanus Toxoid Vaccination: No Hx Influenza Vaccination: No Hx Pneumococcal Vaccination: No Review Of Systems Constitutional: Negative for: Fever, Chills Eyes: Negative for: Vision Change ENT: Negative for: Throat Pain Cardiovascular: Negative for: Chest Pain, Palpitations Respiratory: Negative for: Cough, Shortness of Breath Gastrointestinal: Negative for: Nausea, Vomiting Genitourinary: Negative for: Dysuria, Hematuria Musculoskeletal: Negative for: Back Pain Skin: Negative for: Rash, Lesions, Jaundice, Bruising Neurological: Positive for: Weakness, Numbness, Other (Syncope) Psych: Positive for: Anxiety Physical Exam - Physical Exam Appears: Non-toxic Skin: Warm, Dry Head: Normacephalic Eye(s): bilateral: Normal Inspection, PERRL, EOMI Oral Mucosa: Moist Neck: Trachea Midline, Supple Chest: Symmetrical, Other (Bilateral mastectomy) Cardiovascular: Rhythm Regular Respiratory: No Rales, No Rhonchi, No Wheezing Gastrointestinal/Abdominal: Soft, No Tenderness Back: No Vertebral Tenderness, No Paraspinal Tenderness Extremity: No Tenderness, Other (Full ROM of extremities) Extremity: Bilateral: Atraumatic, Normal Color And Temperature, Normal ROM Pulses: Left Dorsalis Pedis: Normal, Right Dorsalis Pedis: Normal Neurological/Psych: Oriented x3, Other (Left arm paresthisia, Follows commands) Gait: Steady ED Course And Treatment - Laboratory Results Result Diagrams: 04/01/18 23:10 04/01/18 23:10 ECG: Interpreted By Me, Viewed By Me ECG Rhythm: Sinus Rhythm (89), Nonspecific Changes O2 Sat by Pulse Oximetry: 98 Pulse Ox Interpretation: Normal - Radiology CXR: Interpreted by Me, Viewed By Me CXR Interpretation: No: Infiltrates, Fracture, Pnemothorax Progress Note: EKG, blood work, CXR, CT head, and CTA ordered. IV fluids administered. 12:20 AM Pt feels better. moves all extremities Critical Care Time - Critical Care Note Total Time (in mins): 30 Documented critical care: time excludes all time spent performing seperately billable procedures. NIHSS Stroke Scale 2 - Date/Time Evaluation Performed Date Performed: 12/07/18 Time Performed: 22:50 When Was NIHSS Performed: Baseline - How Severe is the Stroke Level of Consciousness: 0=Alert LOC to Questions: 0=Both comments correct LOC to commands: 0=Obeys both correctly Best Gaze: 0=Normal Visual: 0=No visual loss Facial: 0=Normal Motor Arm - Left: 1=Drift noted before 10 sec Motor Arm - Right: 0=No drift Motor Leg - Left: 1=Drift before 5 sec Motor Leg - Right: 0=No drift Limb Ataxia: 0=Absent Sensory: 0=Normal Best Language: 0=No aphasia Dysarthia: 0=Normal articulation Extinction & Inattention (Neglect): 0=Normal, no object Score: 2 rTPA Inclusion/Exclusion - Refusal of Treatment Patient Refused Treatment: No - Inclusion Criteria for Altepase Patient is 18 years or Older: Yes The Clinical Diagnosis of Ischemic Stroke That is Causing a Potentially Disabling Neurological Deficit: No Time of Onset is Well Established to be Less Than 270 Minute Before Treatment Would Begin: Yes Risk/Benefit Discussed With Patient/Family Member Present: Yes - Exclusion Criteria for Altepase Uncontrolled Hypertension at Time of Treatment (Systolic BP above 185 or D iastolic BP above 110 mmHg): No Active Internal Bleeding: No Known Bleeding Diathesis Including but Not Limited to: Platelets Below 100,000/mm,PTT Above 40 sec After Heparin Use, Current Use of Oral Anitcoagulant With INR Greater Than 1.7 or PT Greater Than 15 secs: No Evidence of an Intracranial Hemorrhage: No Evidence of Major Acute Infarct With Signs Greater Than 1/3 MCA Territory: No Suspicion of Subarachnoid Hemorrhage on Pretreatment Evaluation Even if CT Head Negative For Hemorrhage: No - Warning to TPA With Conditions Following Conditions Weighed Against Anticipated Benefit: Yes Condition: Rapid Improvement Disposition Discussed With : Bipin Song Comment: accepted the pt on his service and took over the care at 12:21 AM Counseled Patient/Family Regarding: Studies Performed, Diagnosis - Disposition Referrals: Non [facility] Provider, [Primary Care Provider] - Disposition: HOSPITALIZED Disposition Time: 23:03 Condition: GUARDED Forms: [facility] ([place]) - POA Present On Arrival: Poor Glycemic Control - Clinical Impression Clinical Impression: Syncope, Arm paresthesia, left - Scribe Statement The provider has reviewed the documentation as recorded by the [employer] All medical record entries made by the Scribe were at my direction and personally dictated by me. I have reviewed the chart and agree that the record accurately reflects my personal performance of the history, physical exam, medical decision making, and the department course for this patient. I have also personally directed, reviewed, and agree with the discharge instructions and disposition.
[2018-04-01] MEDS ORDERED: Iodixanol 320 MG/ML 100 ML BOTTLE IV ONE (23:10)
[2018-04-01 23:19] LABS: BASO # 0.1 K/uL (0.0-0.2); BASO % 0.8 % (0.0-2.0); EOS # 0.2 K/uL (0.0-0.7); EOS % 2.8 % (0.0-4.0); HEMOGLOBIN 12.8 g/dL (11.0-16.0); LYMPH # 2.2 K/uL (1.0-4.3); LYMPH % 27.3 % (20.0-40.0); MEAN CELL VOLUME 78.2 fL (81.0-99.0); MEAN CORPUSCULAR HEMOGLOBIN 26.1 pg (27.0-31.0); MEAN CORPUSCULAR HGB CONC 33.4 g/dL (33.0-37.0); MEAN PLATELET VOLUME 9.8 fL (7.2-11.7); MONO # 0.5 K/uL (0.0-0.8); MONO % 6.2 % (0.0-10.0); NEUT # 5.1 K/uL (1.8-7.0); NEUT % 62.9 % (50.0-75.0); NRBC % 0.1 % (0.0-2.0); RBC 4.88 Mil/uL (3.80-5.20); RED CELL DISTRIBUTION WIDTH 14.5 % (11.5-14.5); WHITE BLOOD COUNT 8.1 K/uL (4.8-10.8)
[2018-04-01 23:29] LABS: PROTHROMBIN TIME 10.6 SECONDS (9.7-12.2)
[2018-04-01 23:35] LABS: ALB/GLOB RATIO 1.6 (1.0-2.1); ALBUMIN 4.6 g/dL (3.5-5.0); ALT/SGPT 18 U/L (9-52); AST/SGOT 20 U/L (14-36); BLOOD UREA NITROGEN 16 mg/dL (7-17); CALCIUM 9.7 mg/dl (8.6-10.4); GFR NON-AFRICAN AMERICAN > 60; HDL CHOLESTEROL 46 mg/dL (30-70)
[2018-04-01 23:45] LABS: LDL CHOLESTEROL 147 mg/dL (0-129)
--- NOTE | 2018-04-02 08:05 | CT ---
Date of service: 04/01/2018 PROCEDURE: CT HEAD WITHOUT CONTRAST. HISTORY: Code Stroke COMPARISON: None available. TECHNIQUE: Axial computed tomography images were obtained through the head/brain without intravenous contrast. Radiation dose: Total exam DLP = 1144.22 mGy-cm. This CT exam was performed using one or more of the following dose reduction techniques: Automated exposure control, adjustment of the mA and/or kV according to patient size, and/or use of iterative reconstruction technique. FINDINGS: HEMORRHAGE: No intracranial hemorrhage. BRAIN: Camejo-white matter differentiation is preserved. There is no mass, mass effect or abnormal extra-axial fluid collection. There is no territorial infarction. The midline sagittal structures are normal. VENTRICLES: The ventricles are normal in size, shape and configuration. CALVARIUM: There is no calvarial fracture or extracranial soft tissue swelling. PARANASAL SINUSES: Predominantly clear. MASTOID AIR CELLS: Predominantly clear. OTHER FINDINGS: None. IMPRESSION: No acute intracranial abnormality. If there is a persistent focal neurologic deficit and an ongoing clinical concern for acute infarction, an MRI of the brain without intravenous contrast would be a more sensitive modality for evaluation of hyperacute/acute ischemic infarction. A preliminary report was provided by [employer].
[2018-04-02] MEDS: Enoxaparin 40 mg Syringe SC SCH (10:06)
[2018-04-02] MEDS: Sodium Chloride 0.9% 1,000 ML IV SCH ×3 (10:10→20:41)
--- NOTE | 2018-04-02 10:34 | CP.PCM.CON ---
History of Present Illness - History of Present Illness History of Present Illness: Neurology consult dictated. In brief, Miss Wilder is a 48 yr old woman who has left sided discomfort and numbness with old right sided [place] palsy. ON exam: NIH stroke scale : 1 Neuro exam only significant for left arm pronator drift and decreased ft, pin left arm and leg. Gait is normal, and has old right sided facial weakness. Plan: 1. MRI Brain without contrast 2. Aspirin 3. Offiicial CTA head read 4. Statin 5. Permissive htn thank you Dr cadena Neurology Past Patient History - Past Medical History & Family History Past Medical History?: Yes - Past Social History Smoking Status: Never Smoked - CARDIAC Hx Cardiac Disorders: No - PULMONARY Hx Respiratory Disorders: Yes Other/Comment: GRANULOMA ON CXR DONE ON 12/11/13 ON LEFT UPPER LUNG FIELD - NEUROLOGICAL Hx Seizures: Yes (1982) Hx Transient Ischemic Attacks (TIA): Yes (1988) - HEENT Hx HEENT Problems: Yes Other/Comment: THYROID NODULE - RENAL Hx Chronic Kidney Disease: No - ENDOCRINE/METABOLIC Hx Hypothyroidism: Yes - HEMATOLOGICAL/ONCOLOGICAL Hx Blood Disorders: Yes Hx Cancer: Yes (breast ca right) Hx Chemotherapy: Yes (FINISHED NOW ) Hx Metastesis: Yes (right hip) - INTEGUMENTARY Hx Dermatological Problems: No - MUSCULOSKELETAL/RHEUMATOLOGICAL Hx Musculoskeletal Disorders: No Hx Falls: No Other/Comment: right hip pain when it cold . cancer spread to right hip - GASTROINTESTINAL Hx Gastritis: Yes - GENITOURINARY/GYNECOLOGICAL Hx Reproductive Disorders: Yes Other/Comment: h/o Fibroid Uterus - PSYCHIATRIC Hx Anxiety: Yes Hx Depression: Yes Hx Substance Use: No - SURGICAL HISTORY Hx Surgeries: Yes Hx Breast Biopsy: Yes Hx Section: Yes (x3) Hx Hysterectomy: Yes (2011) Hx Mastectomy: Yes (Bilateral 11/2012 W/ BILATERAL BREAST IMPLANTS) Hx Vascular Access Device: Yes (removal richa cath) Other/Comment: abdominoplasty/LUNG BIOPSY - ANESTHESIA Hx Anesthesia: Yes Hx Anesthesia Reactions: Yes (n/v) Hx Malignant Hyperthermia: No Meds Allergies/Adverse Reactions: Allergies Allergy/AdvReac Type Severity Reaction Status Date / Time levofloxacin [From Levaquin] Allergy Severe ITCHING Verified 04/01/18 23:00 - Medications Medications: Current Medications Aspirin (Aspirin) 325 mg PO DAILY [facility] Last Admin: 04/02/18 10:07 Dose: 325 mg Enoxaparin Sodium (Lovenox) 40 mg SC DAILY [facility] Last Admin: 04/02/18 10:06 Dose: 40 mg Sodium Chloride (Sodium Chloride 0.9%) 1,000 mls @ 100 mls/hr IV .Q10H [facility] Last Admin: 04/02/18 10:10 Dose: Not Given Levothyroxine Sodium (Synthroid) 50 mcg PO DAILY@0630 [facility] Rosuvastatin Calcium (Crestor) 10 mg PO [facility] Results - Vital Signs Recent Vital Signs: Last Vital Signs Temp 97.9 F 04/02/18 07:00 Pulse 75 04/02/18 07:55 Resp 18 04/02/18 07:00 BP 119/55 L 04/02/18 07:00 Pulse Ox 96 04/02/18 07:00 - Labs Result Diagrams: 04/01/18 23:10 04/01/18 23:10 Labs: Laboratory Results - last 24 hr 04/01/18 04/01/18 04/01/18 23:02 23:10 23:10 WBC 8.1 RBC 4.88 Hgb 12.8 Hct 38.2 MCV 78.2 L D MCH 26.1 L MCHC 33.4 RDW 14.5 Plt Count 177 MPV 9.8 Neut % (Auto) 62.9 Lymph % (Auto) 27.3 Gregory % (Auto) 6.2 Eos % (Auto) 2.8 Baso % (Auto) 0.8 Neut # (Auto) 5.1 Lymph # (Auto) 2.2 Gregory # (Auto) 0.5 Eos # (Auto) 0.2 Baso # (Auto) 0.1 PT 10.6 INR 1.0 APTT 37 H Sodium Potassium Chloride Carbon Dioxide Anion Gap BUN Creatinine Est GFR ( Amer) Est GFR (Non-Af Amer) Random Glucose Hemoglobin A1c Calcium Total Bilirubin AST ALT Alkaline Phosphatase Troponin I Total Protein Albumin Globulin Albumin/Globulin Ratio Triglycerides Cholesterol LDL Cholesterol Direct HDL Cholesterol Blood Type O POSITIVE Antibody Screen Negative 04/01/18 04/01/18 23:10 23:17 WBC RBC Hgb Hct MCV MCH MCHC RDW Plt Count MPV Neut % (Auto) Lymph % (Auto) Gregory % (Auto) Eos % (Auto) Baso % (Auto) Neut # (Auto) Lymph # (Auto) Gregory # (Auto) Eos # (Auto) Baso # (Auto) PT INR APTT Sodium 141 Potassium 3.8 Chloride 102 Carbon Dioxide 26 Anion Gap 16 BUN 16 Creatinine 0.5 L Est GFR ( Amer) > 60 Est GFR (Non-Af Amer) > 60 Random Glucose 122 H Hemoglobin A1c 5.7 Calcium 9.7 Total Bilirubin 0.2 AST 20 ALT 18 Alkaline Phosphatase 108 Troponin I < 0.0120 Total Protein 7.5 Albumin 4.6 Globulin 2.9 Albumin/Globulin Ratio 1.6 Triglycerides 311 H Cholesterol 216 H LDL Cholesterol Direct 147 H HDL Cholesterol 46 Blood Type Antibody Screen
--- NOTE | 2018-04-02 12:02 | RAD ---
Date of service: 04/01/2018 HISTORY: Code Stroke COMPARISON: 06/17/2017 FINDINGS: LUNGS: The lungs are well inflated and clear. The mediastinal and hilar configuration is normal. There are multiple surgical clips in the right perihilar region. PLEURA: No pleural effusions or pneumothorax. CARDIOVASCULAR: The heart is normal in size. No aortic atherosclerotic calcification present. OSSEOUS STRUCTURES: Within normal limits for the patient's age. VISUALIZED UPPER ABDOMEN: Normal. OTHER FINDINGS: None. IMPRESSION: No active pulmonary disease.
--- NOTE | 2018-04-02 12:56 | CT ---
Date of service: 04/01/2018 PROCEDURE: CTA HEAD AND NECK WITH CONTRAST HISTORY: left sided weakness COMPARISON: None available. TECHNIQUE: Initial noncontrast head CT was performed. Subsequently, CT angiogram of the head and neck were performed after the intravenous administration of 80 mL of Omnipaque 350. Contiguous 1.5mm thick images were obtained in the axial plane of the neck. 2-D coronal and sagittal MPR images were obtained. Imaging postprocessing was performed with 3-D images also obtained. A delayed contrast head CT was also obtained. This CT exam was performed using one or more of the following dose reduction techniques: Automated exposure control, adjustment of the mA and/or kV according to patient size, and/or use of iterative reconstruction technique. Contrast dose: 100 cc Visipaque 320 Radiation dose: Total exam DLP = 534.25 mGy-cm. FINDINGS: HEAD: Right: The intracranial internal carotid artery, and anterior and middle cerebral arteries are widely patent. Left: The intracranial internal carotid artery, and anterior and middle cerebral arteries are widely patent. Posterior circulation: The visualized intracranial vertebral arteries, basilar artery and posterior cerebral arteries are widely patent. There is no endoluminal filling defect to suggest thrombus. There is no intracranial saccular aneurysm. NECK: There is a three vessel aortic arch. There is no stenosis at the origins of the great vessels at the level of the aortic arch. No atherosclerotic calcification or mural plaque present. Right Carotid: On the right, the common carotid, internal carotid and external carotid arteries are widely patent. There is no hemodynamically significant stenosis in the internal carotid artery by NASCET criteria. Left Carotid: On the left, the common carotid, internal carotid and external carotid arteries are widely patent. There is no hemodynamically significant stenosis in the internal carotid artery by NASCET criteria. The vertebral arteries are widely patent. The visualized soft tissues of the neck are normal. The visualized brain and cervical spine are within normal limits. The lung apices are clear. There is an enlarged multinodular thyroid gland IMPRESSION: 1. No evidence of endoluminal thrombus,occlusion or definite significant stenosis in the intracranial arteries. 2. No evidence of hemodynamically significant stenosis in the internal carotid arteries. 3. Patent bilateral vertebral arteries. A preliminary report was provided by [employer].
--- NOTE | 2018-04-02 15:51 | CP.PCM.CON ---
History of Present Illness - History of Present Illness History of Present Illness: Patient presents for reported syncope: Patient felt aches and pains L. arm which referred to L. neck and described a vagal mediated episode lasting <1 minute Ordinarily denies palpitation, CP or CHF sx's. No prior syncope. No hx of seizures. Currently feels fine. PMHX: Anxiety, Depression, Gastritis, Hypothyroidism, Malignancy (), Seizures (1982), TIA (1988) Denies: Chronic Kidney Disease Past Patient History - Past Medical History & Family History Past Medical History?: Yes - Past Social History Smoking Status: Never Smoked - CARDIAC Hx Cardiac Disorders: No - PULMONARY Hx Respiratory Disorders: Yes Other/Comment: GRANULOMA ON CXR DONE ON 12/11/13 ON LEFT UPPER LUNG FIELD - NEUROLOGICAL Hx Seizures: Yes (1982) Hx Transient Ischemic Attacks (TIA): Yes (1988) - HEENT Hx HEENT Problems: Yes Other/Comment: THYROID NODULE - RENAL Hx Chronic Kidney Disease: No - ENDOCRINE/METABOLIC Hx Hypothyroidism: Yes - HEMATOLOGICAL/ONCOLOGICAL Hx Blood Disorders: Yes Hx Cancer: Yes (breast ca right) Hx Chemotherapy: Yes (FINISHED NOW ) Hx Metastesis: Yes (right hip) - INTEGUMENTARY Hx Dermatological Problems: No - MUSCULOSKELETAL/RHEUMATOLOGICAL Hx Musculoskeletal Disorders: No Hx Falls: No Other/Comment: right hip pain when it cold . cancer spread to right hip - GASTROINTESTINAL Hx Gastritis: Yes - GENITOURINARY/GYNECOLOGICAL Hx Reproductive Disorders: Yes Other/Comment: h/o Fibroid Uterus - PSYCHIATRIC Hx Anxiety: Yes Hx Depression: Yes Hx Substance Use: No - SURGICAL HISTORY Hx Surgeries: Yes Hx Breast Biopsy: Yes Hx Section: Yes (x3) Hx Hysterectomy: Yes (2011) Hx Mastectomy: Yes (Bilateral 11/2012 W/ BILATERAL BREAST IMPLANTS) Hx Vascular Access Device: Yes (removal richa cath) Other/Comment: abdominoplasty/LUNG BIOPSY - ANESTHESIA Hx Anesthesia: Yes Hx Anesthesia Reactions: Yes (n/v) Hx Malignant Hyperthermia: No Meds Allergies/Adverse Reactions: Allergies Allergy/AdvReac Type Severity Reaction Status Date / Time levofloxacin [From Levaquin] Allergy Severe ITCHING Verified 04/01/18 23:00 - Medications Medications: Current Medications Anastrozole (Arimidex 1 Mg Tab) 1 mg PO HS [facility] Aspirin (Aspirin) 325 mg PO DAILY [facility] Last Admin: 04/02/18 10:07 Dose: 325 mg Enoxaparin Sodium (Lovenox) 40 mg SC DAILY [facility] Last Admin: 04/02/18 10:06 Dose: 40 mg Sodium Chloride (Sodium Chloride 0.9%) 1,000 mls @ 100 mls/hr IV .Q10H [facility] Last Admin: 04/02/18 10:10 Dose: Not Given Levothyroxine Sodium (Synthroid) 50 mcg PO DAILY@0630 [facility] Rosuvastatin Calcium (Crestor) 10 mg PO [facility] Physical Exam - Constitutional Appears: No Acute Distress - Head Exam Head Exam: ATRAUMATIC, NORMAL INSPECTION, NORMOCEPHALIC - Eye Exam Eye Exam: EOMI, Normal appearance, PERRL - ENT Exam ENT Exam: Mucous Membranes Moist, Normal Exam - Neck Exam Neck exam: Positive for: Normal Inspection - Respiratory Exam Respiratory Exam: Clear to Auscultation Bilateral, NORMAL BREATHING PATTERN. absent: Rhonchi, Wheezes - Cardiovascular Exam Cardiovascular Exam: REGULAR RHYTHM, +S1, +S2. absent: Systolic Murmur - GI/Abdominal Exam GI & Abdominal Exam: Soft. absent: Tenderness - Extremities Exam Extremities exam: Positive for: full ROM, normal inspection. Negative for: calf tenderness - Neurological Exam Neurological exam: Alert, CN II-XII Intact, Oriented x3 - Psychiatric Exam Psychiatric exam: Normal Affect, Normal Mood - Skin Skin Exam: Normal Color, Warm Results - Vital Signs Recent Vital Signs: Last Vital Signs Temp 97.9 F 04/02/18 15:34 Pulse 92 H 04/02/18 15:34 Resp 20 04/02/18 15:34 BP 107/68 04/02/18 15:34 Pulse Ox 97 04/02/18 15:34 - Labs Result Diagrams: 04/01/18 23:10 04/01/18 23:10 Labs: Laboratory Results - last 24 hr 04/01/18 04/01/18 04/01/18 23:02 23:10 23:10 WBC 8.1 RBC 4.88 Hgb 12.8 Hct 38.2 MCV 78.2 L D MCH 26.1 L MCHC 33.4 RDW 14.5 Plt Count 177 MPV 9.8 Neut % (Auto) 62.9 Lymph % (Auto) 27.3 [place] % (Auto) 6.2 Eos % (Auto) 2.8 Baso % (Auto) 0.8 Neut # (Auto) 5.1 Lymph # (Auto) 2.2 [place] # (Auto) 0.5 Eos # (Auto) 0.2 Baso # (Auto) 0.1 PT 10.6 INR 1.0 APTT 37 H Sodium Potassium Chloride Carbon Dioxide Anion Gap BUN Creatinine Est GFR ( Amer) Est GFR (Non-Af Amer) Random Glucose Hemoglobin A1c Calcium Total Bilirubin AST ALT Alkaline Phosphatase Troponin I Total Protein Albumin Globulin Albumin/Globulin Ratio Triglycerides Cholesterol LDL Cholesterol Direct HDL Cholesterol Blood Type O POSITIVE Antibody Screen Negative 04/01/18 04/01/18 23:10 23:17 WBC RBC Hgb Hct MCV MCH MCHC RDW Plt Count MPV Neut % (Auto) Lymph % (Auto) [place] % (Auto) Eos % (Auto) Baso % (Auto) Neut # (Auto) Lymph # (Auto) [place] # (Auto) Eos # (Auto) Baso # (Auto) PT INR APTT Sodium 141 Potassium 3.8 Chloride 102 Carbon Dioxide 26 Anion Gap 16 BUN 16 Creatinine 0.5 L Est GFR ( Amer) > 60 Est GFR (Non-Af Amer) > 60 Random Glucose 122 H Hemoglobin A1c 5.7 Calcium 9.7 Total Bilirubin 0.2 AST 20 ALT 18 Alkaline Phosphatase 108 Troponin I < 0.0120 Total Protein 7.5 Albumin 4.6 Globulin 2.9 Albumin/Globulin Ratio 1.6 Triglycerides 311 H Cholesterol 216 H LDL Cholesterol Direct 147 H HDL Cholesterol 46 Blood Type Antibody Screen - EKG Data EKG Interpreted by: Myself - Imaging and Cardiology Chest x-ray Status: Image reviewed by me Assessment & Plan - Assessment and Plan (Free Text) Assessment: 48 y/o with hx of breast CA s/p surgery, chemo and XRT with bone mets....prese nts with syncope. Exam: negative for CVD or pathologic sounding murmurs EKG: Normal Labs WNL CXRAY: no congestion CT head and CTA neck WNL BP and HR normal Sx's are likely vasovagal mediated: no additional cardiac w/u planned Lipids are levated: suggest statin therapy Suggest HEME/ONC f/u to pursue progression additional imaging brain if warranted
--- NOTE | 2018-04-02 18:11 | CP.PCM.HP ---
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 cancer spread to right hip - GASTROINTESTINAL Hx Gastritis: Yes - GENITOURINARY/GYNECOLOGICAL Hx Reproductive Disorders: Yes Other/Comment: h/o Fibroid Uterus - PSYCHIATRIC Hx Anxiety: Yes Hx Depression: Yes Hx Substance Use: No - SURGICAL HISTORY Hx Surgeries: Yes Hx Breast Biopsy: Yes Hx Section: Yes (x3) Hx Hysterectomy: Yes (2012) Hx Mastectomy: Yes (Bilateral 11/2012 W/ BILATERAL BREAST IMPLANTS) Hx Vascular Access Device: Yes (removal richa cath) Other/Comment: abdominoplasty/LUNG BIOPSY - ANESTHESIA Hx Anesthesia: Yes Hx Anesthesia Reactions: Yes (n/v) Hx Malignant Hyperthermia: No Meds Allergies/Adverse Reactions: Allergies Allergy/AdvReac Type Severity Reaction Status Date / Time levofloxacin [From Levaquin] Allergy Severe ITCHING Verified 04/01/18 23:00 Physical Exam - Constitutional Appears: Well - Head Exam Head Exam: ATRAUMATIC, NORMAL INSPECTION, NORMOCEPHALIC - Eye Exam Eye Exam: EOMI, Normal appearance, PERRL Pupil Exam: NORMAL ACCOMODATION, PERRL - ENT Exam ENT Exam: Mucous Membranes Moist, Normal Exam - Neck Exam Neck exam: Positive for: Normal Inspection - Respiratory Exam Respiratory Exam: Decreased Breath Sounds - Cardiovascular Exam Cardiovascular Exam: REGULAR RHYTHM, +S1, +S2 - GI/Abdominal Exam GI & Abdominal Exam: Diminished Bowel Sounds, Soft - Rectal Exam Rectal Exam: Deferred Results - Vital Signs Recent Vital Signs: Last Vital Signs Temp 97.9 F 12/08/18 15:34 Pulse 98 H 04/02/18 17:28 Resp 20 04/02/18 15:34 BP 107/68 04/02/18 15:34 Pulse Ox 96 04/02/18 15:44 - Labs Result Diagrams: 04/01/18 23:10 04/01/18 23:10 Labs: Laboratory Results - last 24 hr 04/01/18 04/01/18 04/01/18 23:02 23:10 23:10 WBC 8.1 RBC 4.88 Hgb 12.8 Hct 38.2 MCV 78.2 L D MCH 26.1 L MCHC 33.4 RDW 14.5 Plt Count 177 MPV 9.8 Neut % (Auto) 62.9 Lymph % (Auto) 27.3 [place] % (Auto) 6.2 Eos % (Auto) 2.8 Baso % (Auto) 0.8 Neut # (Auto) 5.1 Lymph # (Auto) 2.2 [place] # (Auto) 0.5 Eos # (Auto) 0.2 Baso # (Auto) 0.1 PT 10.6 INR 1.0 APTT 37 H Sodium Potassium Chloride Carbon Dioxide Anion Gap BUN Creatinine Est GFR ( Amer) Est GFR (Non-Af Amer) Random Glucose Hemoglobin A1c Calcium Total Bilirubin AST ALT Alkaline Phosphatase Troponin I Total Protein Albumin Globulin Albumin/Globulin Ratio Triglycerides Cholesterol LDL Cholesterol Direct HDL Cholesterol Blood Type O POSITIVE Antibody Screen Negative 04/01/18 04/01/18 23:10 23:17 WBC RBC Hgb Hct MCV MCH MCHC RDW Plt Count MPV Neut % (Auto) Lymph % (Auto) [place] % (Auto) Eos % (Auto) Baso % (Auto) Neut # (Auto) Lymph # (Auto) [place] # (Auto) Eos # (Auto) Baso # (Auto) PT INR APTT Sodium 141 Potassium 3.8 Chloride 102 Carbon Dioxide 26 Anion Gap 16 BUN 16 Creatinine 0.5 L Est GFR ( Amer) > 60 Est GFR (Non-Af Amer) > 60 Random Glucose 122 H Hemoglobin A1c 5.7 Calcium 9.7 Total Bilirubin 0.2 AST 20 ALT 18 Alkaline Phosphatase 108 Troponin I < 0.0120 Total Protein 7.5 Albumin 4.6 Globulin 2.9 Albumin/Globulin Ratio 1.6 Triglycerides 311 H Cholesterol 216 H LDL Cholesterol Direct 147 H HDL Cholesterol 46 Blood Type Antibody Screen
--- NOTE | 2018-04-02 21:39 | CP.PCM.CON ---
History of Present Illness - History of Present Illness History of Present Illness: 48 year old female with a history of ER/NV positive, HER2 negative stage IV breast cancer with LN and bone metastasis dx 2013, admitted with syncope. The patient notes to passing out briefly for a few seconds which was witnessed by he r . She denies headache and blurry vision. In regards to her breast cancer treatment, she has been maintained on endocrine therapy and denosumab. Past medical history: CVA, stage IV breast cancer Past surgical history: B/L mastectomy Family history: Denies hematologic and oncologic problems Social history: Denies tobacco, alcohol, and illicit drug use Allergies: Levofloxacin Review of systems: All remaining review of systems including HEENT, cardiovascular, respiratory, gastrointestinal, genitourinary, musculoskeletal, dermatologic, neurologic, and psychiatric are negative unless mentioned in the HPI. 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 cancer spread to right hip - GASTROINTESTINAL Hx Gastritis: Yes - GENITOURINARY/GYNECOLOGICAL Hx Reproductive Disorders: Yes Other/Comment: h/o Fibroid Uterus - PSYCHIATRIC Hx Anxiety: Yes Hx Depression: Yes Hx Substance Use: No - SURGICAL HISTORY Hx Surgeries: Yes Hx Breast Biopsy: Yes Hx Section: Yes (x3) Hx Hysterectomy: Yes (2011) Hx Mastectomy: Yes (Bilateral 11/2012 W/ BILATERAL BREAST IMPLANTS) Hx Vascular Access Device: Yes (removal richa cath) Other/Comment: abdominoplasty/LUNG BIOPSY - ANESTHESIA Hx Anesthesia: Yes Hx Anesthesia Reactions: Yes (n/v) Hx Malignant Hyperthermia: No Meds Allergies/Adverse Reactions: Allergies Allergy/AdvReac Type Severity Reaction Status Date / Time levofloxacin [From Levaquin] Allergy Severe ITCHING Verified 04/01/18 23:00 - Medications Medications: Current Medications Anastrozole (Arimidex 1 Mg Tab) 1 mg PO [facility] Aspirin (Aspirin) 325 mg PO DAILY [facility] Last Admin: 04/02/18 10:07 Dose: 325 mg Enoxaparin Sodium (Lovenox) 40 mg SC DAILY [facility] Last Admin: 04/02/18 10:06 Dose: 40 mg Sodium Chloride (Sodium Chloride 0.9%) 1,000 mls @ 100 mls/hr IV .Q10H [facility] Last Admin: 04/02/18 10:10 Dose: Not Given Levothyroxine Sodium (Synthroid) 50 mcg PO DAILY@0630 [facility] Rosuvastatin Calcium (Crestor) 10 mg PO [facility] Physical Exam - Head Exam Head Exam: ATRAUMATIC - Eye Exam Eye Exam: Normal appearance - ENT Exam ENT Exam: Mucous Membranes Dry - Respiratory Exam Respiratory Exam: NORMAL BREATHING PATTERN - Cardiovascular Exam Cardiovascular Exam: +S1, +S2 - GI/Abdominal Exam GI & Abdominal Exam: Normal Bowel Sounds - Extremities Exam Extremities exam: Positive for: normal inspection - Neurological Exam Neurological exam: Oriented x3 - Psychiatric Exam Psychiatric exam: Normal Affect, Normal Mood Results - Vital Signs Recent Vital Signs: Last Vital Signs Temp 97.9 F 04/02/18 15:34 Pulse 98 H 04/02/18 17:28 Resp 20 04/02/18 15:34 BP 107/68 04/02/18 15:34 Pulse Ox 96 04/02/18 15:44 - Labs Result Diagrams: 04/01/18 23:10 04/01/18 23:10 Labs: Laboratory Results - last 24 hr 04/01/18 04/01/18 04/01/18 23:02 23:10 23:10 WBC 8.1 RBC 4.88 Hgb 12.8 Hct 38.2 MCV 78.2 L D MCH 26.1 L MCHC 33.4 RDW 14.5 Plt Count 177 MPV 9.8 Neut % (Auto) 62.9 Lymph % (Auto) 27.3 [place] % (Auto) 6.2 Eos % (Auto) 2.8 Baso % (Auto) 0.8 Neut # (Auto) 5.1 Lymph # (Auto) 2.2 [place] # (Auto) 0.5 Eos # (Auto) 0.2 Baso # (Auto) 0.1 PT 10.6 INR 1.0 APTT 37 H Sodium Potassium Chloride Carbon Dioxide Anion Gap BUN Creatinine Est GFR ( Amer) Est GFR (Non-Af Amer) Random Glucose Hemoglobin A1c Calcium Total Bilirubin AST ALT Alkaline Phosphatase Troponin I Total Protein Albumin Globulin Albumin/Globulin Ratio Triglycerides Cholesterol LDL Cholesterol Direct HDL Cholesterol Blood Type O POSITIVE Antibody Screen Negative 04/01/18 04/01/18 23:10 23:17 WBC RBC Hgb Hct MCV MCH MCHC RDW Plt Count MPV Neut % (Auto) Lymph % (Auto) [place] % (Auto) Eos % (Auto) Baso % (Auto) Neut # (Auto) Lymph # (Auto) [place] # (Auto) Eos # (Auto) Baso # (Auto) PT INR APTT Sodium 141 Potassium 3.8 Chloride 102 Carbon Dioxide 26 Anion Gap 16 BUN 16 Creatinine 0.5 L Est GFR ( Amer) > 60 Est GFR (Non-Af Amer) > 60 Random Glucose 122 H Hemoglobin A1c 5.7 Calcium 9.7 Total Bilirubin 0.2 AST 20 ALT 18 Alkaline Phosphatase 108 Troponin I < 0.0120 Total Protein 7.5 Albumin 4.6 Globulin 2.9 Albumin/Globulin Ratio 1.6 Triglycerides 311 H Cholesterol 216 H LDL Cholesterol Direct 147 H HDL Cholesterol 46 Blood Type Antibody Screen Assessment & Plan (1) Breast cancer Assessment and Plan: LN and bone metastasis will restart endocrine therapy MRI brain with and without IV contrast given syncope to rule out brain metastasis will add breast tumor marker Thank you for this interesting consult. Status: Acute
--- NOTE | 2018-04-02 21:41 | CON ---
DATE: 04/02/2018 NEUROLOGY CONSULT HISTORY OF PRESENT ILLNESS: Ms. Bryant is a 48-year-old woman with a past medical history of bilateral breast CA with mastectomy and bone metastasis. She came to the hospital because she was sitting on a chair at home and felt some numbness on her left arm and a sharp pain from the shoulder, it came down to the elbow. She then moved from the chair to the bed and had a syncopal episode lasting one or two seconds. Shortly following this, the patient had left side numbness and tingling and weakness. Code stroke was called and the patient 's symptoms resolved in terms of weakness and numbness. Of note, she has a prior history of a right-sided facial droop. It is unclear if this is secondary to a stroke or secondary to Carrillo's palsy. Today, on examination, the patient is well, sitting comfortably in bed. She has no complaints. She does have a right-sided facial droop and is complaining of slight numbness in her left arm. She denies any prior episodes or trauma or motor vehicle accident. PAST MEDICAL HISTORY: Anxiety, depression, gastritis, hypothyroidism, breast cancer and malignancy, type not known, status post mastectomy, on tamoxifen, epilepsy in 1982, TIA in 1988. FAMILY AND SOCIAL HISTORY: , has several children. No tobacco, no alcohol. ALLERGIES: NO KNOWN DRUG ALLERGIES. REVIEW OF SYSTEMS: No fever, chills, chest pain, or shortness of breath. PHYSICAL EXAMINATION: GENERAL: Alert, oriented x 3. VITAL SIGNS: PERRL. NEUROLOGIC: Cranial nerves II through XII normal. Right-sided facial droop, which appears to be complete cranial nerve VII involvement. Mini mental status is 30/30. Of note, exam is conducted in [place]. Motor strength is normal upper and lower limbs bilaterally. Sensory has decreased fine touch and pain in the left arm, dermatomal distribution not specified. There is a pronator drift. Gait is normal. The patient has no ataxia. Cranial nerves showed no dysmetria. Deep tendon reflexes +2 throughout upper and lower limbs bilaterally. LABORATORY DATA: Labs are as follows: White count 8.1, hemoglobin 12.8, hematocrit 38.2, platelets 177. Coags only high for PTT 37. Chemistries normal except for glucose, which is 122. Of note her triglycerides and lipid profile are very abnormal; triglycerides are 311, cholesterol 216, LDL 147. CT of the head was done, which was normal. CTA of the head and neck was done, which is not read as of yet. IMPRESSION: This is a 48-year-old woman who has multiple risk factors for stroke. She may have had a new ischemic stroke affecting the right basal ganglia. She is not a tPA candidate because of resolving symptoms. However, we will do stroke workup. PLAN: 1. Permissive hypertension, blood pressure less than or equal to 190/80. 2. Intravenous fluids of normal saline at 100 mL per hour, aspirin 325 mg by mouth once a day. 3. The patient needs to be started on statin, her triglycerides and LDL are very high. 4. PT/ST/OT. 5. Venodyne protection. 6. Stroke in young persons' workup including protein C, protein S, antithrombin III, factor V Leiden, homocysteine, as well as prothrombin gene mutation. Thank you for this interesting consult. Our team will follow. Miguel Low MD cc: Jose Song MD
[2018-04-03] MEDS: Sodium Chloride 0.9% 1,000 ML IV SCH (04:20)
[2018-04-03] MEDS: Levothyroxine 50 MCG TAB PO SCH (06:41)
[2018-04-03] MEDS: Enoxaparin 40 mg Syringe SC SCH (09:46)
--- NOTE | 2018-04-03 12:18 | CP.PCM.PN ---
Subjective - Date & Time of Evaluation Date of Evaluation: 04/03/18 Time of Evaluation: 10:45 - Subjective Subjective: clinically same Objective - Vital Signs/Intake and Output Vital Signs (last 24 hours): Temp Pulse Resp BP Pulse Ox 97.4 F L 89 18 100/63 96 04/03/18 07:00 04/03/18 11:48 04/03/18 07:00 04/03/18 07:00 04/03/18 07:00 - Medications Medications: Current Medications Anastrozole (Arimidex 1 Mg Tab) 1 mg PO [facility] Last Admin: 04/02/18 23:09 Dose: 1 mg Aspirin (Aspirin) 325 mg PO DAILY [facility] Last Admin: 04/03/18 09:46 Dose: 325 mg Enoxaparin Sodium (Lovenox) 40 mg SC DAILY [facility] Last Admin: 04/03/18 09:46 Dose: 40 mg Sodium Chloride (Sodium Chloride 0.9%) 1,000 mls @ 100 mls/hr IV .Q10H [facility] Last Admin: 04/03/18 04:20 Dose: 100 mls/hr Influenza Virus Vaccine (Fluzone Quad 1851-1802) 60 mcg IM .ONCE ONE Stop: 04/03/18 14:01 Levothyroxine Sodium (Synthroid) 50 mcg PO DAILY@0630 [facility] Last Admin: 04/03/18 06:41 Dose: 50 mcg Pneumococcal Polyvalent Vaccine (Pneumovax 23 Vaccine) 0.5 ml IM .ONCE ONE Stop: 04/03/18 14:01 Rosuvastatin Calcium (Crestor) 10 mg PO [facility] Last Admin: 04/02/18 23:11 Dose: 10 mg - Labs Labs: 04/01/18 23:10 04/01/18 23:10 PT 10.6 SECONDS (9.7-12.2) 04/01/18 23:10 INR 1.0 04/01/18 23:10 APTT 37 SECONDS (21-34) H 04/01/18 23:10 - Constitutional Appears: Well - Head Exam Head Exam: ATRAUMATIC, NORMAL INSPECTION, NORMOCEPHALIC - Eye Exam Eye Exam: EOMI, Normal appearance, PERRL Pupil Exam: NORMAL ACCOMODATION, PERRL - ENT Exam ENT Exam: Mucous Membranes Moist, Normal Exam - Neck Exam Neck Exam: Full ROM, Normal Inspection. absent: Lymphadenopathy - Respiratory Exam Respiratory Exam: Decreased Breath Sounds - Cardiovascular Exam Cardiovascular Exam: REGULAR RHYTHM, +S1, +S2 - GI/Abdominal Exam GI & Abdominal Exam: Soft, Diminished Bowel Sounds - Rectal Exam Rectal Exam: Deferred
[2018-04-03] MEDS ORDERED: Influenza Vaccine 60 MCG/0.5 ML SYR (3 yr & up) IM ONE (14:00)
[2018-04-03] MEDS ORDERED: Pneumococcal 23-Valent Vaccine IM ONE (14:00)
--- NOTE | 2018-04-03 15:18 | CP.PCM.PN ---
Subjective - Date & Time of Evaluation Date of Evaluation: 04/03/18 Time of Evaluation: 13:00 - Subjective Subjective: Patient is awake, alert and has no further complaints. No numbness, no tingling, no headache, no weakness . ROS: as above. On exam: SIgnificant only for right sided facial droop. Rest of neuro exam is normal. Objective - Vital Signs/Intake and Output Vital Signs (last 24 hours): Temp Pulse Resp BP Pulse Ox 97.4 F L 89 18 100/63 96 04/03/18 07:00 04/03/18 11:48 04/03/18 07:00 04/03/18 07:00 04/03/18 07:00 Intake and Output: 04/03/18 04/03/18 06:59 18:59 Intake Total 900 Balance 900 - Medications Medications: Current Medications Anastrozole (Arimidex 1 Mg Tab) 1 mg PO [facility] Last Admin: 04/02/18 23:09 Dose: 1 mg Aspirin (Aspirin) 325 mg PO DAILY [facility] Last Admin: 04/03/18 09:46 Dose: 325 mg Enoxaparin Sodium (Lovenox) 40 mg SC DAILY [facility] Last Admin: 04/03/18 09:46 Dose: 40 mg Sodium Chloride (Sodium Chloride 0.9%) 1,000 mls @ 100 mls/hr IV .Q10H [facility] Last Admin: 04/03/18 04:20 Dose: 100 mls/hr Levothyroxine Sodium (Synthroid) 50 mcg PO DAILY@0630 [facility] Last Admin: 04/03/18 06:41 Dose: 50 mcg Rosuvastatin Calcium (Crestor) 10 mg PO [facility] Last Admin: 04/02/18 23:11 Dose: 10 mg - Labs Labs: 04/01/18 23:10 04/01/18 23:10 PT 10.6 SECONDS (9.7-12.2) 04/01/18 23:10 INR 1.0 04/01/18 23:10 APTT 37 SECONDS (21-34) H 04/01/18 23:10 Assessment and Plan - Assessment and Plan (Free Text) Assessment: 48 yr old woman with stage 4 breast cancer, now here for new onset left sided numbness and posssible tia/stroke. Agree with Dr. Andrew, could be sequelae of brain mets. Plan: 1. MRI Brain with and without contrast 2. ECHO 3.If Mri is indeed positive for stroke, will pursue stroke workup. THank you
[2018-04-04 01:38] VITALS: RESP 20
[2018-04-04] MEDS: Sodium Chloride 0.9% 1,000 ML IV SCH (04:05)
[2018-04-04] MEDS: Levothyroxine 50 MCG TAB PO SCH (05:49)
[2018-04-04 08:05] VITALS: BP 105/69; TEMP 98; O2SAT 98
--- NOTE | 2018-04-04 09:14 | CP.PCM.PN ---
Subjective - Date & Time of Evaluation Date of Evaluation: 04/04/18 Time of Evaluation: 09:09 - Subjective Subjective: Progress note for Dr. Low Patient was seen and examined at bedside in no acute distress. Patient has no complaints today, feels well, and wants to go home. She no longer has numbness. The patient denies chest pain, palpitations, dyspnea, cough, nausea, vomiting, fevers, headaches, changes in vision, and dizziness. Objective - Vital Signs/Intake and Output Vital Signs (last 24 hours): Temp Pulse Resp BP Pulse Ox 98 F 89 20 105/69 98 04/04/18 07:00 04/04/18 07:30 04/04/18 07:00 04/04/18 07:00 04/04/18 07:00 Intake and Output: 04/04/18 04/04/18 06:59 18:59 Intake Total 800 Balance 800 - Medications Medications: Current Medications Anastrozole (Arimidex 1 Mg Tab) 1 mg PO [facility] Last Admin: 04/03/18 21:46 Dose: 1 mg Aspirin (Aspirin) 325 mg PO DAILY [facility] Last Admin: 04/03/18 09:46 Dose: 325 mg Enoxaparin Sodium (Lovenox) 40 mg SC DAILY [facility] Last Admin: 04/03/18 09:46 Dose: 40 mg Sodium Chloride (Sodium Chloride 0.9%) 1,000 mls @ 100 mls/hr IV .Q10H [facility] Last Admin: 04/04/18 04:05 Dose: 100 mls/hr Levothyroxine Sodium (Synthroid) 50 mcg PO DAILY@0630 [facility] Last Admin: 04/04/18 05:49 Dose: 50 mcg Rosuvastatin Calcium (Crestor) 10 mg PO [facility] Last Admin: 04/03/18 21:46 Dose: 10 mg - Labs Labs: 04/01/18 23:10 04/01/18 23:10 PT 10.6 SECONDS (9.7-12.2) 04/01/18 23:10 INR 1.0 04/01/18 23:10 APTT 37 SECONDS (21-34) H 04/01/18 23:10 - Constitutional Appears: No Acute Distress - Head Exam Head Exam: ATRAUMATIC, NORMAL INSPECTION - Eye Exam Eye Exam: EOMI, Normal appearance - ENT Exam ENT Exam: Mucous Membranes Moist Additional comments: chronic right sided facial droop (x20+ years) - Neck Exam Neck Exam: Full ROM, Normal Inspection Additional comments: muscle spasm of the left trapezius - Respiratory Exam Respiratory Exam: Clear to Ausculation Bilateral, NORMAL BREATHING PATTERN. absent: Rhonchi, Wheezes, Respiratory Distress - Cardiovascular Exam Cardiovascular Exam: +S1, +S2 - GI/Abdominal Exam GI & Abdominal Exam: Soft, Normal Bowel Sounds - Extremities Exam Extremities Exam: Full ROM, Normal Inspection. absent: Calf Tenderness, Pedal Edema, Tenderness - Neurological Exam Neurological Exam: Alert, Awake, CN II-XII Intact, Oriented x3, Reflexes Normal Neuro motor strength exam: Left Upper Extremity: 5, Right Upper Extremity: 5, Left Lower Extremity: 5, Right Lower Extremity: 5 - Psychiatric Exam Psychiatric exam: Normal Affect, Normal Mood - Skin Skin Exam: Dry, Intact, Normal Color, Warm Assessment and Plan - Assessment and Plan (Free Text) Plan: 48 year old woman with a history of stage 4 breast cancer, presents with complaints of new onset left sided numbness and possible TIA/stroke. Plan: Left Sided Numbness - Resolved - Head CT: no acute intracranial abnormality - Head CTA: no evidence of endoluminal thrombus, occlusion, stenosis in intracranial arteries or internal carotid arteries; patent bilateral vertebral arteries. - MRI Brain with and without contrast: unremarkable - Recommend outpatient ECHO - Continue PT/OT *Patient is clear for discharge from neurological standpoint. Patient should have outpatient echocardiogram. Case discussed with Dr. Devante Cerda, PGY2
[2018-04-04] MEDS ORDERED: Gadodiamide 287 mg/ml 20 ml IV ONE (09:55)
[2018-04-04] MEDS: Enoxaparin 40 mg Syringe SC SCH (10:38)
--- NOTE | 2018-04-04 11:30 | MRI ---
Date of service: 04/04/2018 PROCEDURE: MRI BRAIN WITH AND WITHOUT CONTRAST HISTORY: rule out brain metastasis, rule out acute CVA COMPARISON: None available. TECHNIQUE: Multiplanar, multisequence MR images of the brain were obtained with and without intravenous contrast enhancement (Omniscan 15 cc). FINDINGS: HEMORRHAGE: None DWI: No evidence of an acute or early subacute infarction. BRAIN PARENCHYMA: Intrinsic signal throughout the noel and white matter structures above below the tentorium appears within normal limits including the brainstem. There is no mass effect, parenchymal edema or loss of the corticomedullary differentiation. Midline brain anatomy appears within normal limits including the corpus callosum, brainstem and craniocervical junction. There is no suspicious extra-axial fluid collection identified. ENHANCEMENT: No abnormal intracranial enhancement. VENTRICLES: Unremarkable. No hydrocephalus. CRANIUM: Unremarkable. ORBITS: Grossly unremarkable. PARANASAL SINUSES/MASTOIDS: Clear VASCULAR SYSTEM: Skull base flow voids intact. OTHER FINDINGS: None . IMPRESSION: Unremarkable pre and post contrast enhanced MRI of the brain. No MR evidence of intracranial brain metastases appreciable.
--- NOTE | 2018-04-04 12:42 | CP.PCM.PN ---
Subjective - Date & Time of Evaluation Date of Evaluation: 04/04/18 Time of Evaluation: 12:40 - Subjective Subjective: No new complaints No CP, palpitation, SOB, fevers, chills No visual complaints Patient with hx of breast CA s/p mastectomy, chemo and XRT with known bnone mets....noted opinions of neuro and HEME/Onc. MRI results are negative for acute pathology. Objective - Vital Signs/Intake and Output Vital Signs (last 24 hours): Temp Pulse Resp BP Pulse Ox 98 F 89 20 105/69 98 04/04/18 07:00 04/04/18 07:30 04/04/18 07:00 04/04/18 07:00 04/04/18 07:00 Intake and Output: 04/04/18 04/04/18 06:59 18:59 Intake Total 800 Balance 800 - Medications Medications: Current Medications Anastrozole (Arimidex 1 Mg Tab) 1 mg PO [facility] Last Admin: 04/03/18 21:46 Dose: 1 mg Aspirin (Aspirin) 325 mg PO DAILY [facility] Last Admin: 04/04/18 10:38 Dose: 325 mg Enoxaparin Sodium (Lovenox) 40 mg SC DAILY [facility] Last Admin: 04/04/18 10:38 Dose: 40 mg Sodium Chloride (Sodium Chloride 0.9%) 1,000 mls @ 100 mls/hr IV .Q10H [facility] Last Admin: 04/04/18 04:05 Dose: 100 mls/hr Levothyroxine Sodium (Synthroid) 50 mcg PO DAILY@0630 [facility] Last Admin: 04/04/18 05:49 Dose: 50 mcg Rosuvastatin Calcium (Crestor) 10 mg PO [facility] Last Admin: 04/03/18 21:46 Dose: 10 mg - Labs Labs: 04/01/18 23:10 04/01/18 23:10 PT 10.6 SECONDS (9.7-12.2) 04/01/18 23:10 INR 1.0 04/01/18 23:10 APTT 37 SECONDS (21-34) H 04/01/18 23:10 - Constitutional Appears: No Acute Distress - Head Exam Head Exam: ATRAUMATIC, NORMAL INSPECTION, NORMOCEPHALIC - Eye Exam Eye Exam: EOMI, Normal appearance. absent: Scleral icterus - ENT Exam ENT Exam: Mucous Membranes Moist, Normal Oropharynx Additional comments: Chronic R. facial droop - Neck Exam Neck Exam: Full ROM, Normal Inspection. absent: Thyromegaly - Respiratory Exam Respiratory Exam: Clear to Ausculation Bilateral. absent: Rales, Rhonchi, Wheezes - Cardiovascular Exam Cardiovascular Exam: REGULAR RHYTHM, +S1, +S2. absent: Murmur - GI/Abdominal Exam GI & Abdominal Exam: Soft, Normal Bowel Sounds. absent: Tenderness - Extremities Exam Extremities Exam: Normal Inspection. absent: Calf Tenderness - Neurological Exam Neurological Exam: Alert, Awake, Oriented x3 - Psychiatric Exam Psychiatric exam: Normal Affect, Normal Mood - Skin Skin Exam: Normal Color, Warm Assessment and Plan - Assessment and Plan (Free Text) Assessment: 48 y/o with hx of breast CA s/p surgery, chemo and XRT with bone mets....presents with syncope. Exam: negative for CVD or pathologic sounding murmurs EKG: Normal Labs WNL CXRAY: no congestion CT head and CTA neck WNL BP and HR normal Sx's are likely vasovagal mediated: MRI negagtiver for acute pathology ECHO ordered: will f/u results Lipids are levated: suggest ASA 81 and statin therapy to reduce risk of atheroscerotic CVD events. HEME/ONC and Neuro on board for additional recommendations.
[2018-04-04 12:57] VITALS: PULSE 96
--- NOTE | 2018-04-04 12:58 | CP.PCM.PN ---
Subjective - Date & Time of Evaluation Date of Evaluation: 04/04/18 Time of Evaluation: 09:45 - Subjective Subjective: clinically same Objective - Vital Signs/Intake and Output Vital Signs (last 24 hours): Temp Pulse Resp BP Pulse Ox 98 F 96 H 20 105/69 98 04/04/18 07:00 04/04/18 12:30 04/04/18 07:00 04/04/18 07:00 04/04/18 07:00 Intake and Output: 04/04/18 04/04/18 06:59 18:59 Intake Total 800 Balance 800 - Medications Medications: Current Medications Anastrozole (Arimidex 1 Mg Tab) 1 mg PO [facility] Last Admin: 04/03/18 21:46 Dose: 1 mg Aspirin (Aspirin) 325 mg PO DAILY [facility] Last Admin: 04/04/18 10:38 Dose: 325 mg Enoxaparin Sodium (Lovenox) 40 mg SC DAILY [facility] Last Admin: 04/04/18 10:38 Dose: 40 mg Sodium Chloride (Sodium Chloride 0.9%) 1,000 mls @ 100 mls/hr IV .Q10H [facility] Last Admin: 04/04/18 04:05 Dose: 100 mls/hr Levothyroxine Sodium (Synthroid) 50 mcg PO DAILY@0630 [facility] Last Admin: 04/04/18 05:49 Dose: 50 mcg Rosuvastatin Calcium (Crestor) 10 mg PO [facility] Last Admin: 04/03/18 21:46 Dose: 10 mg - Labs Labs: 04/01/18 23:10 04/01/18 23:10 PT 10.6 SECONDS (9.7-12.2) 04/01/18 23:10 INR 1.0 04/01/18 23:10 APTT 37 SECONDS (21-34) H 04/01/18 23:10 - Constitutional Appears: Well - Head Exam Head Exam: ATRAUMATIC, NORMAL INSPECTION, NORMOCEPHALIC - Eye Exam Eye Exam: EOMI, Normal appearance, PERRL Pupil Exam: NORMAL ACCOMODATION, PERRL - ENT Exam ENT Exam: Mucous Membranes Moist, Normal Exam - Neck Exam Neck Exam: Full ROM, Normal Inspection. absent: Lymphadenopathy - Respiratory Exam Respiratory Exam: Decreased Breath Sounds - Cardiovascular Exam Cardiovascular Exam: REGULAR RHYTHM, +S1, +S2 - GI/Abdominal Exam GI & Abdominal Exam: Soft, Diminished Bowel Sounds - Rectal Exam Rectal Exam: Deferred
--- NOTE | 2018-04-04 14:52 | CARD ---
APPROVED REPORT Date of service: 04/01/2018 EKG Measurement Heart [id number] <Conclusion> Normal sinus rhythm Normal ECG
--- NOTE | 2018-04-04 16:51 | CARD ---
APPROVED REPORT Date of service: 04/04/2018 EXAM: Two-dimensional and M-mode echocardiogram with Doppler and color Doppler. Other Information Quality : GoodRhythm : INDICATION Syncope Numbness/ Breast Cancer/ Breast Implants 2D DIMENSIONS IVSd0.8 (0.7-1.1cm)LVDd4.5 (3.9-5.9cm) PWd0.6 (0.7-1.1cm)LA Rlbxsk24 (18-58mL) LVDs3.0 (2.5-4.0cm)FS (%) 32.7 % LVEF (%)61.3 (>50%)LVEF (Cannon's)69.04 % M-Mode DIMENSIONS Left Atrium (MM)3.34 (2.5-4.0cm)IVSd0.71 (0.7-1.1cm) Aortic Root2.99 (2.2-3.7cm)LVDd4.65 (4.0-5.6cm) Aortic Cusp Exc.2.04 (1.5-2.0cm)PWd0.73 (0.7-1.1cm) FS (%) 30 %LVDs3.28 (2.0-3.8cm) LVEF (%)57 (>50%) Mitral Valve MV E Qsyoiord43.8cm/sMV A Rvtnzlzf55.1cm/sE/A ratio0.9 TDI Lateral E' Peak V12.03cm/sMedial E' Peak V8.35cm/sE/Lateral E'6.6 E/Medial E'9.4 Tricuspid Valve TR Peak Xfbpkbgm312rt/sTR Peak Gr.67azBuLJXV82slWb LEFT VENTRICLE The left ventricle is normal size. There is normal left ventricular wall thickness. The left ventricular function is normal. The left ventricular ejection fraction is within the low normal range. About 60% No regional wall motion abnormalities noted. The left ventricular diastolic function is indeterminate. No left ventricle thrombus noted on this study. There is no ventricular septal defect visualized. There is no left ventricular aneurysm. There is no mass noted in the left ventricle. RIGHT VENTRICLE The right ventricle is normal size. There is normal right ventricular wall thickness. The right ventricular systolic function is normal. ATRIA The left atrium size is normal. The right atrium size is normal. The interatrial septum is intact with no evidence for an atrial septal defect. AORTIC VALVE The aortic valve is normal in structure and function. No aortic regurgitation is present. There is no aortic valvular stenosis. There is no aortic valvular vegetation. MITRAL VALVE The mitral valve is normal in structure and function. There is no evidence of mitral valve prolapse. There is no mitral valve stenosis. There is no mitral valve regurgitation noted. TRICUSPID VALVE The tricuspid valve is normal in structure and function. There is mild tricuspid valve regurgitation noted. There is no tricuspid valve prolapse or vegetation. There is no tricuspid valve stenosis. PULMONIC VALVE The pulmonary valve is normal in structure and function. There is no pulmonic valvular regurgitation. There is no pulmonic valvular stenosis. GREAT VESSELS The aortic root is normal in size. The ascending aorta is normal in size. The pulmonary artery is normal. The IVC is normal in size and collapses >50% with inspiration. PERICARDIAL EFFUSION The pericardium appears normal. There is no pleural effusion. <Conclusion> The left ventricular function is normal. Normal Doppler.
--- NOTE | 2018-04-05 18:20 | CP.PCM.PN ---
Subjective - Date & Time of Evaluation Date of Evaluation: 04/04/18 Time of Evaluation: 12:00 - Subjective Subjective: No complaints. Objective - Vital Signs/Intake and Output Vital Signs (last 24 hours): Temp Pulse Resp BP Pulse Ox 98 F 96 H 20 105/69 98 04/04/18 07:00 04/04/18 12:30 04/04/18 07:00 04/04/18 07:00 04/04/18 07:00 - Labs Labs: 04/01/18 23:10 04/01/18 23:10 PT 10.6 SECONDS (9.7-12.2) 04/01/18 23:10 INR 1.0 04/01/18 23:10 APTT 37 SECONDS (21-34) H 04/01/18 23:10 - Head Exam Head Exam: ATRAUMATIC - Eye Exam Eye Exam: Normal appearance - ENT Exam ENT Exam: Mucous Membranes Dry - Respiratory Exam Respiratory Exam: NORMAL BREATHING PATTERN - Cardiovascular Exam Cardiovascular Exam: +S1, +S2 - GI/Abdominal Exam GI & Abdominal Exam: Normal Bowel Sounds Assessment and Plan (1) Breast cancer Assessment & Plan: LN and bone metastasis on endocrine therapy MRI brain negative for brain metastasis Status: Acute
--- NOTE | 2018-04-05 18:20 | CP.PCM.PN ---
Subjective - Date & Time of Evaluation Date of Evaluation: 04/03/18 Time of Evaluation: 12:00 - Subjective Subjective: No complaints. Objective - Vital Signs/Intake and Output Vital Signs (last 24 hours): Temp Pulse Resp BP Pulse Ox 98 F 96 H 20 105/69 98 04/04/18 07:00 04/04/18 12:30 04/04/18 07:00 04/04/18 07:00 04/04/18 07:00 - Labs Labs: 04/01/18 23:10 04/01/18 23:10 PT 10.6 SECONDS (9.7-12.2) 04/01/18 23:10 INR 1.0 04/01/18 23:10 APTT 37 SECONDS (21-34) H 04/01/18 23:10 - Head Exam Head Exam: ATRAUMATIC - Eye Exam Eye Exam: Normal appearance - ENT Exam ENT Exam: Mucous Membranes Dry - Respiratory Exam Respiratory Exam: NORMAL BREATHING PATTERN - Cardiovascular Exam Cardiovascular Exam: +S1, +S2 - GI/Abdominal Exam GI & Abdominal Exam: Normal Bowel Sounds Assessment and Plan (1) Breast cancer Assessment & Plan: LN and bone metastasis on endocrine therapy MRI brain negative for brain metastasis Status: Acute
== END 2018-04-04 19:18 | disposition home or self-care (01) | DRG 312 ==
LOC: SUPCPDRO 22:47 → C.ER 22:47 → C.6T 04-02 00:17
PROVIDERS: ADMIT Internal Medicine Nephrology; ATTEND Internal Medicine Nephrology
DX: R55 Syncope and collapse (principal); C79.51 Secondary malignant neoplasm of bone; E03.9 Hypothyroidism, unspecified; J84.10 Pulmonary fibrosis, unspecified; I69.392 Facial weakness following cerebral infarction; Z85.3 Personal history of malignant neoplasm of breast; Z90.13 Acquired absence of bilateral breasts and nipples; Z90.710 Acquired absence of both cervix and uterus; Z79.810 Long term (current) use of selective estrogen receptor modulators (SERMs); Z98.82 Breast implant status; Z92.21 Personal history of antineoplastic chemotherapy; Z98.891 History of uterine scar from previous surgery

== ENCOUNTER 2018-07-10 22:35 | Emergency (ER) | payer MEDICARE ==
[2018-07-10 22:35] VITALS: BMI 28.0
[2018-07-10 22:47] VITALS: O2SAT 96
--- NOTE | 2018-07-10 23:16 | C.PDOC ---
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 Pain is occ burning and is repr oducible on palpation. Patient also reports left-sided flank pain and mild diarrhea. Patient states she is currently taking a course of Zithromax for sore throat. She denies fever, chills, nausea, vomiting. Time Seen by Provider: 07/10/18 23:02 Chief Complaint (Nursing): Chest Pain History Per: Patient History/Exam Limitations: no limitations Onset/Duration Of Symptoms: Days (2) Current Symptoms Are (Timing): Still Present Severity: Mild Pain Scale Rating Of: 2 Quality: "Pain" Associated Symptoms: denies: Nausea Modifying Factors: None Exacerbating Factors: None Alleviating Factors: None Recent travel outside of the [place]: No Additional History Per: Patient Past Medical History Reviewed: Historical Data, Nursing Documentation, Vital Signs Vital Signs: Last Vital Signs Temp 97.9 F 07/10/18 22:43 Pulse 113 H 07/10/18 22:43 Resp 20 07/10/18 22:43 BP 123/84 07/10/18 22:43 Pulse Ox 96 07/10/18 22:43 - Medical History PMH: Anxiety, Depression, Gastritis, Hypothyroidism, Malignancy (breast CA s/p mastectomy, taking Tamoxifen), Seizures (1982), TIA (1988) Denies: Chronic Kidney Disease Surgical History: No Surg Hx - [facility] Procedures BILAT EXTEND SIMP MASTEC (12/14/13) BILATERAL BREAST IMPLANT (07/19/14) BONE BIOPSY NEC (01/30/14) BREAST IMPLANT REMOVAL (07/19/14) COLONOSCOPY (03/02/13) ESOPHAGOGASTRODUODENOSCOPY [EGD] W/CLOSED BIOPSY (03/02/13) EXCISE AXILLARY NODE (12/14/13) INCIS W REM OF FORIEGN BODY OR DEV FROM SKIN & SUBCUT TISSUE (12/03/14) INJECT/INFUSE NEC (08/31/13) INSERTION OF BREAST TISSUE ASP DEVELOPER (12/14/13) INSERTION OF TOTALLY IMPLANTABLE VASC ACCESS DEVIC (01/11/14) MAMMOPLASTY NEC (12/14/13) OTHER C.A.T. SCAN (01/30/14) PERCUTAN NEEDLE BIOPSY OF BREAST (09/26/13) THORAX SFT TISS XRAY NEC (12/03/14) Family History: States: Unknown Family Hx - Social History Hx Tobacco Use: No Hx Alcohol Use: No Hx Substance Use: No - Immunization History Hx Tetanus Toxoid Vaccination: No Hx Influenza Vaccination: No Hx Pneumococcal Vaccination: No Review Of Systems Constitutional: Negative for: Fever, Chills Cardiovascular: Positive for: Chest Pain. Negative for: Palpitations Respiratory: Positive for: Cough. Negative for: Shortness of Breath Gastrointestinal: Positive for: Diarrhea (mild). Negative for: Nausea, Vomiting, Abdominal Pain Genitourinary: Negative for: Dysuria, Frequency, Hematuria Musculoskeletal: Positive for: Other (left-sided flank pain ) Skin: Negative for: Rash, Lesions, Jaundice, Bruising Physical Exam - Physical Exam Appears: Non-toxic, No Acute Distress Skin: Warm, Dry Head: Normacephalic Eye(s): bilateral: Normal Inspection Oral Mucosa: Moist Neck: Supple Chest: Symmetrical, No Deformity, Tenderness (reproducible to chest wall on palpation ), Other (chest pain is reproducible with cough and palpation) Cardiovascular: Rhythm Regular, No Murmur Respiratory: No Rales, No Rhonchi, No Wheezing, Other (speaking in complete sentences ) Gastrointestinal/Abdominal: Soft, No Tenderness, No Guarding, No Rebound Back: No CVA Tenderness Extremity: Normal ROM, Capillary Refill (less than 2 seconds ) Neurological/Psych: Oriented x3 ED Course And Treatment - Laboratory Results Result Diagrams: 07/10/18 23:59 07/11/18 00:00 ECG: Interpreted By Me, Viewed By Me ECG Rhythm: Sinus Rhythm (100), Nonspecific Changes O2 Sat by Pulse Oximetry: 96 (on RA ) Pulse Ox Interpretation: Normal - Radiology CXR: Interpreted by Me, Viewed By Me CXR Interpretation: Yes: Other (e be=reast surgical clips, unchanged from 04/01/18). No: Infiltrates, Fracture, Pnemothorax Progress Note: Bloodwork, Flu swab, CXR, EKG ordered. Aspirin PO given. Reevaluation Time: 01:22 Reassessment Condition: Improved Medical Decision Making Medical Decision Making: I considered the following diagnoses: acute coronary syndrome, pulmonary embolism, lower respiratory infection, aortic dissection/aneurysm, pneumothorax, pericarditis, esophagitis/GERD, zoster and esophageal rupture but found them to be unlikely based on the history, physical exam, and diagnostics. My conclusions regarding the unlikely diagnoses were based on: the absence of significant EKG abnormalities, the lack of suggestive x-ray findings, the absence of significant abnormalities on cardiac monitoring, the absence of asymmetric pulses,Pt is cp free and wants to go home Upon provider reevaluation patient is feeling better, is medically stable, and requires no further treatment in the ED at this time. Patient will be discharged home with Rx for protonix, tramadol . Counseling was provided and all questions were answered regarding diagnosis and need for follow up with dr ceballos. There is agreement to discharge plan. Return if symptoms persist or worsen. Disposition Counseled Patient/Family Regarding: Studies Performed, Diagnosis, Need For Followup, Rx Given - Disposition Referrals: Alvarado Ceballos MD [Medical Doctor] - Disposition: HOME/ ROUTINE Disposition Time: 01:18 Condition: FAIR Additional Instructions: Por favor regrese si los sntomas recurren. Prescriptions: Pantoprazole Sodium [Protonix] 40 mg PO DAILY #15 ect traMADol [Ultram] 50 mg PO TID PRN #15 tab PRN Reason: Pain, Severe (8-10) Instructions: Acid Reflux (Gastroesophageal Reflux Disease), Adult (DC), Costochondritis (DC) Forms: [employer] (Portuguese) - Clinical Impression Clinical Impression: GERD (gastroesophageal reflux disease), Costochondral chest pain - Scribe Statement The provider has reviewed the documentation as recorded by the Scribe (Karmen Song) Provider Attestation: All medical record entries made by the Scribe were at my direction and personally dictated by me. I have reviewed the chart and agree that the record accurately reflects my personal performance of the history, physical exam, medical decision making, and the department course for this patient. I have also personally directed, reviewed, and agree with the discharge instructions and disposition.
[2018-07-10] MEDS ORDERED: Aspirin 325 mg EC Tablets PO STA (23:23)
[2018-07-10 23:54] LABS: BASO % 0.5 % (0.0-2.0); EOS # 0.3 K/uL (0.0-0.7); EOS % 3.7 % (0.0-4.0); HEMOGLOBIN 12.2 g/dL (11.0-16.0); LYMPH # 1.5 K/uL (1.0-4.3); LYMPH % 19.7 % (20.0-40.0); MEAN CELL VOLUME 78.7 fL (81.0-99.0); MEAN CORPUSCULAR HEMOGLOBIN 25.8 pg (27.0-31.0); MEAN CORPUSCULAR HGB CONC 32.7 g/dL (33.0-37.0); MEAN PLATELET VOLUME 9.7 fL (7.2-11.7); MONO # 0.6 K/uL (0.0-0.8); NEUT % 68.1 % (50.0-75.0); RBC 4.75 Mil/uL (3.80-5.20); RED CELL DISTRIBUTION WIDTH 15.2 % (11.5-14.5); WHITE BLOOD COUNT 7.4 K/uL (4.8-10.8)
[2018-07-11 00:06] LABS: VENOUS BLOOD GAS BASE EXCESS 6.3 mmol/L (0.0-2.0); VENOUS BLOOD GAS PCO2 51 mmHg (40-60); VENOUS BLOOD GAS PO2 31 mm/Hg (30-55); VENOUS BLOOD PH 7.41 (7.32-7.43)
[2018-07-11 00:10] LABS: ALB/GLOB RATIO 1.6 (1.0-2.1); ALBUMIN 4.2 g/dL (3.5-5.0); ALT/SGPT 7 U/L (9-52); AST/SGOT 19 U/L (14-36); BLOOD UREA NITROGEN 16 mg/dL (7-17); CALCIUM 10.2 mg/dl (8.6-10.4); GFR NON-AFRICAN AMERICAN > 60
[2018-07-11 00:10] LABS: PROTHROMBIN TIME 10.6 SECONDS (9.7-12.2)
[2018-07-11 01:35] VITALS: BP 125/78; PULSE 89; RESP 89; TEMP 98
--- NOTE | 2018-07-11 13:05 | RAD ---
HISTORY: SOB COMPARISON: Chest x-ray performed 04/01/18 TECHNIQUE: Chest, one view. FINDINGS: LUNGS: No focal consolidation. Multiple surgical clips are noted in the right perihilar region as on prior study. Scattered probable calcified granulomas, largest measuring approximately 5 mm in the left upper lobe. Please note that chest x-ray has limited sensitivity for the detection of pulmonary masses. PLEURA: No significant pleural effusion identified. No definite pneumothorax . CARDIOVASCULAR: Heart size appears within normal limits. Atherosclerotic calcifications of the aorta. OSSEOUS STRUCTURES: Calcification noted adjacent to the right humeral head which may be seen in setting of calcific tendinitis. VISUALIZED UPPER ABDOMEN: Unremarkable. OTHER FINDINGS: None. IMPRESSION: Stable appearance of the chest.
== END 2018-07-11 01:35 | disposition home or self-care (01) ==
LOC: C.ER 22:35
DX: K21.9 Gastro-esophageal reflux disease without esophagitis (principal); R07.89 Other chest pain
CPT/HCPCS: 71045; 80053; 82803; 84484; 85025; 85610; 85730; 87040; 87804; 96374; 99283; J1885

== ENCOUNTER 2018-09-15 16:04 | Emergency (ER) | payer MEDICARE ==
[2018-09-15 16:26] VITALS: O2SAT 99; BMI 28.3
[2018-09-15] MEDS ORDERED: Sodium Chloride 0.9% 1,000 ML IV ONE (16:53)
--- NOTE | 2018-09-15 17:03 | C.PDOC ---
History Of Present Illness 48 year old female who presents to the ED with acute dizziness, malaise, body tingling, and anxiety after taking a second daily dose of a new medication Namzaric that was recently prescribed by Dr. Lazcano. Medication was prescribed re lating to a hx of stroke, which left patient with mild left facial droop and memory issues, but no peripheral neurological changes. Patient reports that she took the first dose yesterday with food and had similar but milder symptoms that resolved spontaneously. Patient reports that she took the second dose today on an empty stomach with a more forceful onset of symptoms that have now since resolved. Family at bedside. Chief Complaint (Nursing): Weakness/Neurological Deficit History Per: Patient History/Exam Limitations: no limitations Onset/Duration Of Symptoms: Days (1) Current Symptoms Are (Timing): Better Recent travel outside of the [place]: No Additional History Per: Patient Past Medical History Reviewed: Historical Data, Nursing Documentation, Vital Signs Vital Signs: Last Vital Signs Temp 97.4 F L 09/15/18 16:10 Pulse 72 09/15/18 16:10 Resp 17 09/15/18 16:10 BP 115/74 09/15/18 16:10 Pulse Ox 99 09/15/18 16:10 Primary Care Provider: Alvarado Ceballos V - Medical History PMH: Anxiety, Depression, Gastritis, Hypothyroidism, Malignancy (breast CA s/p mastectomy, taking Tamoxifen), Seizures (1982), TIA (1988) Denies: Chronic Kidney Disease Surgical History: No Surg Hx - [facility] Procedures BILAT EXTEND SIMP MASTEC (12/14/13) BILATERAL BREAST IMPLANT (07/19/14) BONE BIOPSY NEC (01/30/14) BREAST IMPLANT REMOVAL (07/19/14) COLONOSCOPY (03/02/13) ESOPHAGOGASTRODUODENOSCOPY [EGD] W/CLOSED BIOPSY (03/02/13) EXCISE AXILLARY NODE (12/14/13) INCIS W REM OF FORIEGN BODY OR DEV FROM SKIN & SUBCUT TISSUE (12/03/14) INJECT/INFUSE NEC (08/31/13) INSERTION OF BREAST TISSUE WEAVER WIRE LOOM (12/14/13) INSERTION OF TOTALLY IMPLANTABLE VASC ACCESS DEVIC (01/11/14) MAMMOPLASTY NEC (12/14/13) OTHER C.A.T. SCAN (01/30/14) PERCUTAN NEEDLE BIOPSY OF BREAST (09/26/13) THORAX SFT TISS XRAY NEC (12/03/14) Family History: States: Unknown Family Hx - Social History Hx Tobacco Use: No Hx Alcohol Use: No Hx Substance Use: No - Immunization History Hx Tetanus Toxoid Vaccination: Yes Hx Influenza Vaccination: No Hx Pneumococcal Vaccination: No Review Of Systems Constitutional: Positive for: Malaise Neurological: Positive for: Dizziness, Other (body tingling ) Psych: Positive for: Anxiety Physical Exam - Physical Exam Appears: Non-toxic, No Acute Distress, Other (anxious, mild right facial droop unchanged from prior ) Skin: Warm, Dry Head: Atraumatic, Normacephalic Eye(s): bilateral: Normal Inspection Oral Mucosa: Moist Chest: Symmetrical, No Deformity Cardiovascular: Rhythm Regular, No Murmur Respiratory: Normal Breath Sounds, No Rales, No Rhonchi, No Wheezing Gastrointestinal/Abdominal: Soft, No Tenderness Neurological/Psych: Oriented x3, Normal Speech, Normal Cognition, Normal Cranial Nerves, Normal Motor, Normal Sensation, Normal Reflexes, Other (Neuro intact) ED Course And Treatment - Laboratory Results Result Diagrams: 09/15/18 17:00 09/15/18 17:00 Lab Interpretation: Normal ECG: Interpreted By Me ECG Rhythm: Sinus Rhythm O2 Sat by Pulse Oximetry: 99 (on RA) Pulse Ox Interpretation: Normal - Other Rad CXR X-Ray: Viewed By Me, Read By Radiologist Interpretation: IMPRESSION: Cardiomegaly. Atherosclerotic calcifications. Surgical clips at the right lower lobe/chest. No focal consolidation. 14 x 5 mm radiopaque density projects over the mid lower chest likely external to patient. Correlate clinically. Findings discussed with Dr. Freed on 09/15/18 at 5:12 p.m. Reevaluation Time: 17:42 Reassessment Condition: Improved Medical Decision Making Medical Decision Making: Plan: EKG Labs CXR Toradol 30mg IVP IV Fluids adverse med rxn to new Nanizaric, 2nd dose today anxiety normal labs and w/u NO s/s of new neuro pathology today Disposition Doctor Will See Patient In The: Office Counseled Patient/Family Regarding: Studies Performed, Diagnosis - Disposition Disposition: HOME/ ROUTINE Disposition Time: 17:42 Condition: GOOD Forms: [facility] (Senegalese) - Clinical Impression Clinical Impression: Anxiety, Adverse drug reaction - Scribe Statement The provider has reviewed the documentation as recorded by the [employer] All medical record entries made by the Scribe were at my direction and personally dictated by me. I have reviewed the chart and agree that the record accurately reflects my personal performance of the history, physical exam, medical decision making, and the department course for this patient. I have also personally directed, reviewed, and agree with the discharge instructions and disposition.
[2018-09-15 17:10] LABS: BASO % 0.3 % (0.0-2.0); EOS # 0.2 K/uL (0.0-0.7); EOS % 3.2 % (0.0-4.0); HEMOGLOBIN 12.5 g/dL (11.0-16.0); LYMPH % 26.1 % (20.0-40.0); MEAN CORPUSCULAR HEMOGLOBIN 25.4 pg (27.0-31.0); MEAN CORPUSCULAR HGB CONC 33.1 g/dL (33.0-37.0); MEAN PLATELET VOLUME 9.4 fL (7.2-11.7); MONO # 0.5 K/uL (0.0-0.8); NEUT # 4.9 K/uL (1.8-7.0); NEUT % 63.4 % (50.0-75.0); NRBC % 0.1 % (0.0-2.0); RBC 4.91 Mil/uL (3.80-5.20); RED CELL DISTRIBUTION WIDTH 14.6 % (11.5-14.5); WHITE BLOOD COUNT 7.8 K/uL (4.8-10.8)
[2018-09-15 17:12] LABS: MEAN CELL VOLUME 76.6 fL (81.0-99.0)
[2018-09-15 17:13] LABS: PARTIAL THROMBOPLASTIN TIME 37.8 SECONDS (21-34)
[2018-09-15 17:15] LABS: ALB/GLOB RATIO 1.4 (1.0-2.1); ALBUMIN 4.6 g/dL (3.5-5.0); ALT/SGPT 7 U/L (9-52); AST/SGOT 19 U/L (14-36); BLOOD UREA NITROGEN 14 mg/dL (7-17); CALCIUM 9.6 mg/dl (8.6-10.4); GFR NON-AFRICAN AMERICAN > 60
--- NOTE | 2018-09-15 17:18 | RAD ---
HISTORY: SOB COMPARISON: Chest x-ray performed 07/10/18 TECHNIQUE: Chest, one view. FINDINGS: Examination limited by habitus and hypoinflation. LUNGS: Surgical clips at the right lower lobe/chest. No focal consolidation.Please note that chest x-ray has limited sensitivity for the detection of pulmonary masses. PLEURA: No significant pleural effusion identified. No definite pneumothorax . CARDIOVASCULAR: Cardiomegaly. Atherosclerotic calcifications present. OSSEOUS STRUCTURES: No acute osseous abnormality identified. VISUALIZED UPPER ABDOMEN: Unremarkable. OTHER FINDINGS: 14 x 5 mm radiopaque density projects over the mid lower chest. IMPRESSION: Cardiomegaly. Atherosclerotic calcifications. Surgical clips at the right lower lobe/chest. No focal consolidation. 14 x 5 mm radiopaque density projects over the mid lower chest likely external to patient. Correlate clinically. Findings discussed with Dr. Freed on 09/15/18 at 5:12 p.m.
[2018-09-15 18:03] VITALS: BP 115/76; PULSE 88; RESP 16; TEMP 97.8
--- NOTE | 2018-09-17 00:21 | CARD ---
APPROVED REPORT Date of service: 09/15/2018 EKG Measurement Heart [id number] <Conclusion> Normal sinus rhythm Cannot rule out Anterior infarct, age undetermined Abnormal ECG
== END 2018-09-15 18:02 | disposition home or self-care (01) ==
LOC: C.ER 16:04
DX: F41.9 Anxiety disorder, unspecified (principal); T50.995A Adverse effect of other drugs, medicaments and biological substances, initial encounter; Y92.89 Other specified places as the place of occurrence of the external cause; R29.810 Facial weakness; Z86.73 Personal history of transient ischemic attack (TIA), and cerebral infarction without residual deficits; Z85.3 Personal history of malignant neoplasm of breast
CPT/HCPCS: 71045; 80053; 82948; 84484; 85025; 85610; 85730; 93005; 99285; J7030